=== PATIENT | male | born 2000 | race Caucasian/White ===

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

== ENCOUNTER 2021-09-25 11:44 | Emergency (ER) | payer BC, SELFPAY ==
--- NOTE | ~2021-09-25 | CT_ITS ---
EXAMINATION: CT abdomen pelvis wo con DATE: 09/25/2021 14:57 INDICATION: Abdominal pain, nausea and vomiting TECHNIQUE: Computed tomography (CT) of the abdomen and pelvis was performed without intravenous contr ast. The dose-length product (DLP) was 205.33 mGy-cm. Automated exposure control and iterative recons truction technique were employed. COMPARISON: 09/22/2019 FINDINGS: The lung bases are clear. The heart size is normal. There is a small sliding hiatal hernia. The liver is diffusely low in attenuation when compared with the spleen, consistent with hepatic socrates atosis. The spleen, pancreas, gallbladder, and adrenal glands are normal. The kidneys are unremarkabl e. No pathologically enlarged abdominal or pelvic lymph nodes are identified. There is no free intrap eritoneal gas or evidence of bowel obstruction. The appendix is normal. IMPRESSION: 1. Diffuse hepatic steatosis. Reviewed, dictated and finalized at location F.
[2021-09-25 11:52] VITALS: BP 130/105; PULSE 69; RESP 16; TEMP 36.9; O2SAT 100
[2021-09-25 12:12] LABS: Basophils Percent Auto 0.3 % (0.2-1.2); Hematocrit 54.6 % (42.0-52.0); Hemoglobin 19.1 g/dL (14.0-18.0); Immature Granulocyte Absolute 0.02 K/mm3 (0.00-0.031); Immature Granulocyte Percent A 0.3 % (0-0.5); Lymphocytes Absolute Auto 0.87 K/mm3 (0.9-3.2); Lymphocytes Percent Auto 11.6 % (18.3-44.2); Mean Corpuscular Hemoglobin 32.1 pg (26-34); Mean Corpuscular Volume 91.8 fl (80-100); Mean Platelet Volume 9.4 fl (7.4-10.4); Monocytes Absolute Auto 0.9 K/mm3 (0.1-0.6); Monocytes Percent Auto 11.5 % (2.6-8.5); Neutrophils Absolute Auto 5.7 K/mm3 (1.3-6.7); Neutrophils Percent Auto 76.3 % (45.5-73.1); Platelet Count Result 290 k/mm3 (150-375); Red Blood Count 5.95 M/mm3 (4.6-6.20); Red Cell Distribution Width 12.6 % (11.5-14.5); White Blood Count 7.5 K/mm3 (4.5-10.0)
[2021-09-25 12:22] LABS: Add Urine Microscopic? YES; Appearance Urine Clear (Clear); Bilirubin Urine 3+ (Negative); Blood Urine Negative (Negative); Color Urine Yellow (Yellow); Glucose Urine UA Negative (Negative); Ketones Urine 4+ mg/dL (Negative); Leukocyte Esterase Ur Negative LEU/UL (Negative); Nitrate Urine Negative (Negative); Protein Urine 3+ mg/dL (Negative); Specific Grav Ur >= 1.030 (1.001-1.035); Urobilinogen Urine 0.2 mg/dL (<2.0)
[2021-09-25 12:25] LABS: Alanine Aminotransferase 395 U/L (6-50); Albumin Level 5.8 g/dL (3.5-5.1); Alkaline Phosphatase 77 U/L (38-126); Anion Gap 22 mmol/L (8-16); Aspartate Amino Transferase 241 U/L (17-59); Bilirubin,Total 0.8 mg/dL (0.2-1.3); Blood Urea Nitrogen 14 mg/dL (9-20); Calcium 10.9 mg/dL (8.4-10.2); Carbon Dioxide 22 mmol/L (22-30); Chloride 92 mmol/L (98-107); Estimated CRCL calculation 95 ml/min; Estimated Glomerular Filt Rate > 60; Glucose 146 mg/dL (65-110); Lipase 78 U/L (23-300); Potassium 4.4 mmol/L (3.4-5.0); Sodium 136 mmol/L (137-145)
[2021-09-25 12:26] LABS: Mucus Urine Moderate /lpf; RBC Urine 0-2 /hpf (0-2); Squamous Epithelial Cell Urine Rare /hpf (Few); WBC Urine 0-3 /hpf
--- NOTE | 2021-09-25 12:51 | ED.NAVMDI ---
HPI - Nausea/Vomiting/Diarrhea General Chief complaint: Nausea/Vomiting/Diarrhea Stated complaint: vomiting Time Seen by Provider: 09/25/21 12:06 Source: patient Mode of arrival: ambulatory Limitations: no limitations History of Present Illness HPI Narrative: Patient is a 20-year-old male who presents to the ED with report of N/V/D. Patient reports having symptoms for the past 2 days. He states he has been unable to keep anything down and at times has been forcefully vomiting. He does have a history of acid reflux and has been taking Tums at home without relief. He also reports having mid abdominal pain, described as a cramping. No blood in the stool. No urinary symptoms. No upper respiratory symptoms, cough, congestion, rhinorrhea. No fever/chills. No family members with similar symptoms. No known bad food exposure. Related Data Home Medications Medication Instructions Recorded Confirmed pantoprazole 40 mg tablet,delayed 40 mg PO QAM 09/25/21 release sertraline 50 mg tablet 50 mg PO DAILY 09/25/21 Allergies Allergy/AdvReac Type Severity Reaction Status Date / Time Unable to Assess Allergy Verified 09/22/19 06:23 Review of Systems Review of Systems: CONSTITUTIONAL: Denies fever, chills. ENT: Denies rhinorrhea, congestion, sore throat. CARDIOVASCULAR: Denies chest pain. RESPIRATORY: Denies cough or dyspnea. GASTROINTESTINAL: Reports mid abdominal pain, nausea, vomiting, and diarrhea. Denies hematemesis, rectal bleeding. GENITOURINARY: Denies dysuria or hematuria. MUSCULOSKELETAL: Denies back pain. NEUROLOGIC: Denies headache. All systems reviewed & are unremarkable except as noted in HPI and below PMFSH Past Medical History Medical History (Updated 09/25/21 @ 16:25 by Angela Olsen PA-C) Acid reflux Surgical History Surgical History (Updated 09/25/21 @ 13:01 by Angela Olsen PA-C) History of circumcision History of esophagogastroduodenoscopy (EGD) Social History Social History (Updated 09/25/21 @ 13:01 by Angela Olsen PA-C) Smoking status: Never smoker Exam Narrative: GENERAL: Well appearing, well-nourished, non-toxic, in no acute distress. HEAD: Normocephalic, atraumatic. NECK: Supple. No adenopathy, no masses. RESPIRATORY: Airway patent, respirations nonlabored. Clear to auscultation bilaterally, no rales, rhonchi, wheezing. CARDIOVASCULAR: Regular rate and rhythm without murmurs, rubs, or gallops. Peripheral pulses 2+ and equal bilaterally. ABDOMINAL: Soft, diffuse tenderness to palpation, worst in umbilical region, RLQ, RUQ. Nondistended, no hepatosplenomegaly. Normoactive BS. MUSCULOSKELETAL: Moves all extremities. Strength/ROM intact without gross deformities. SKIN: Warm, dry, normal color. No rashes. NEURO: A&O X3. Speech clear. Cranial nerves II-XII grossly intact. Steady gait. No ataxic movements. PSYCHIATRIC: Appropriate mood and affect. Normal interaction. Course Vital Signs Vital signs: Vital Signs Temperature 98.4 F 09/25/21 11:52 Pulse Rate 69 09/25/21 11:52 Respiratory Rate 16 09/25/21 11:52 Blood Pressure 130/105 H 09/25/21 11:52 Pulse Oximetry 100 09/25/21 11:52 Oxygen Delivery Room Air 09/25/21 11:52 Temperature 98.4 F 09/25/21 11:52 Pulse Rate 69 09/25/21 11:52 Respiratory Rate 16 09/25/21 11:52 Blood Pressure 130/105 H 09/25/21 11:52 Pulse Oximetry 100 09/25/21 11:52 Oxygen Delivery Room Air 09/25/21 11:52 MDM - Nausea/Vomiting/Diarrhea MDM Narrative Medical decision making narrative: Patient presented to ED with 2-day history of N/V/D with mid abdominal pain. Vital signs stable upon arrival. Patient with diffuse right-sided abdominal pain on exam. Laboratory evaluation showed hemoconcentration. No leukocytosis. Initial CMP showed hypochloremia, positive anion gap, hypercalcemia. No history of diabetes. BG 146. Gap likely related to dehydration as urine also showed protein and ketones. CMP also show
[2021-09-25] MEDS: SODIUM CHLORIDE 0.9% IV 1,000 ML 999 ML IV CONT ×2 (13:01→15:09)
[2021-09-25] MEDS: ONDANSETRON INJ 4 MG/2 ML VIAL IV PUSH (13:01)
[2021-09-25] MEDS: METOCLOPRAMIDE HCL INJ 10 MG/2 ML VIAL IV PUSH (15:09)
[2021-09-25] MEDS: LIDOCAINE HCL 2% VISC SOLN 15 ML UDC 20 ML PO (15:10)
[2021-09-25] MEDS: MAG HYDROX/AL HYDROX/SIMETH 30 ML UDC PO (15:10)
[2021-09-25 16:11] LABS: Alanine Aminotransferase 278 U/L (6-50); Alkaline Phosphatase 57 U/L (38-126); Anion Gap 13 mmol/L (8-16); Aspartate Amino Transferase 186 U/L (17-59); Bilirubin,Total 0.7 mg/dL (0.2-1.3); Blood Urea Nitrogen 13 mg/dL (9-20); Carbon Dioxide 22 mmol/L (22-30); Chloride 101 mmol/L (98-107); Estimated CRCL calculation 106 ml/min; Estimated Glomerular Filt Rate > 60; Glucose 114 mg/dL (65-110); Sodium 136 mmol/L (137-145)
== END 2021-09-25 16:45 | disposition home or self-care (01) ==
PROVIDERS: Physician Assistant; Emergency Provider Emergency Medicine; PCP Registered Nurse
DX: K76.0 Fatty (change of) liver, not elsewhere classified (principal); R11.2 Nausea with vomiting, unspecified; K21.9 Gastro-esophageal reflux disease without esophagitis
CPT/HCPCS: 36415; 74176; 80053; 81001; 83690; 85025; 96365; 96375; 99284; A9270; J0131; J2405; J2765; J7030

== ENCOUNTER 2024-10-05 02:43 | Emergency (ER) | payer OTHER, SELFPAY ==
[2024-10-05] VITALS (11 sets, daily range): BP systolic 118–161; BP diastolic 55–98; PULSE 101–110; RESP 16–20; TEMP 36.4–37.4; O2SAT 94–100
--- NOTE | ~2024-10-05 | CT_ITS ---
Non-contrast CT scan of the Abdomen and Pelvis Clinical indication: Pelvic pain Technique: 2.5 mm axial scans were obtained through the abdomen and pelvis without intravenous or or al contrast. Dose reduction technique was used on this scan by utilizing automated exposure control a nd iterative reconstruction technique. The dose-length product (DLP) was 909.94 mGy-cm. COMPARISON: 09/25/2021 Findings: Images through the lung bases reveal no abnormalities. There is no evidence of renal or ureteral calculi. The kidneys and the ureters are nondilated. Liver measures 26.7 cm in length. There is diffuse hepatic steatosis. Somewhat mildly nodular contour of the liver present. There are pronounced low attenuation regions adjacent to gallbladder fossa whi ch could reflect mass lesions versus areas of more pronounced fatty infiltration. Gallbladder is yefri edly distended, without definite wall thickening or adjacent inflammatory change. The spleen, pancrea s, and adrenals appear normal. There is no aortic aneurysm. There is no evidence of bowel obstruction. Mild large bowel wall thickening is probably related to th e presence of ascites. Images through the pelvis were performed. Small amount of abdominopelvic ascites present. Urinary lety dder unremarkable. No pelvic mass evident. Impression: Hepatomegaly with diffuse fatty infiltration and probable mild cirrhotic change. There are more prono unced, masslike low attenuation regions adjacent to gallbladder fossa, measuring up to 6.6 cm in diam eter, which could reflect areas of more pronounced fatty infiltration versus possibly mass lesions. F ollow-up pre and postcontrast MR recommended to further assess. Small amount of abdominopelvic ascites with diffuse mesenteric edema. Markedly distended gallbladder without evidence of wall thickening or acute inflammatory change. Mild large bowel wall thickening diffusely is probably related to the presence of ascites. Correlate clinically for colitis. Reviewed, dictated and finalized at [facility]. Impression: Hepatomegaly with diffuse fatty infiltration and probable mild cirrhotic change . There are more pronounced, masslike low attenuation regions adjacent to gallb ladder fossa, measuring up to 6.6 cm in diameter, which could reflect areas of more pronounced fatty infiltration versus possibly mass lesions. Follow-up pre and postcontrast MR recommended to further assess. Small amount of abdominopelvic ascites with diffuse mesenteric edema. Markedly distended gallbladder without evidence of wall thickening or acute inf lammatory change. Mild large bowel wall thickening diffusely is probably related to the presence of ascites. Correlate clinically for colitis.
--- OUTSIDE RECORDS SUMMARY | 2024-10-05 02:47 | XMS_ITS | Data Portability ---
Author Organization [place] - [facility] [employer], Main Office Address [address] [place] [id number] Care Team Providers Care Chief Cardiopulmonary Technologist Name Role Phone NEERAJ WEEKS Primary Care Provider [phone] Assessment Encounter Date Assessment Date Assessment LastModified by Organization Details LastModified Time 07/10/2022 07/10/2022 D/w pt about his findings, recent imagine and further plan of care. Will refer pt to PT and Right Of Way Manager. Meds as directed. Ice pack as directed prn. RICE explained in detail. Advised to avoid any strenuous activities/lifti ng-pushing until cleared. Educated pt about alarming symptoms to monitor at home and call us back or get checked in ED. F/u in few weeks as directed. [email or web address] Not available 07/10/2022 12:42:04 08/07/2022 08/07/2022 This note is dictated and transcribed by [employer]. Shingle Grader variances may occur. Despite proofreading, typographical errors may occur. [email or web address] Not available 08/12/2022 13:29:37 08/07/2022 08/07/2022 21 yo M with - WELL ADULT VISIT - RT ANKLE PAIN, chronic - EX-SMOKER X-ray Rt ankle: 07/03/22. D/w pt in detail about his findings, recent imagines and further plan of care. Will do routine labs. Meds as directed. Diet and exercise explained in detail. Safe sex education given. Encouraged pt cont not to smoke. F/u with Right Of Way Manager as per schedule. HM: Flu - Pt declined. Tdap, Gardasil - At pharmacy/HD. F/u in 2 weeks. Annual labs in 08/18. [email or web address] Not available 08/07/2022 10:48:28 09/01/2022 09/01/2022 21 yo M with - ELEVATED LFTs - GOUT, mild - HTG, new - VIT D DEFICIENCY - RT ANKLE PAIN, chronic - EX-SMOKER X-ray Rt ankle: 07/03/22. D/w pt in detail about his findings, recent imagines and further plan of care. Meds as directed. Diet and exercise explained in detail. Safe sex education given. Encouraged pt cont not to smoke. Advised pt to avoid any alcohol and acetaminophen in future. Cont f/u with Right Of Way Manager as per schedule. HM: Flu - Pt declined. Tdap, Gardasil - At pharmacy/HD. F/u in 1-1.5 months. LFT before next visit. Uric acid, lipids in 12/17. Annual labs in 08/18. [email or web address] Not available 09/01/2022 15:41:10 09/29/2022 09/29/2022 21 yo M with - ELEVATED LFTs - GOUT, mild - HTG, new - ALLERGIC RHINITIS, seasonal - ALCOHOL DEPENDENCE - VIT D DEFICIENCY - RT ANKLE PAIN, chronic - EX-SMOKER X-ray Rt ankle: 07/03/22. D/w pt in detail about his findings, recent imagines and further plan of care. Will refer pt to Automobile Contract Clerk. Meds as directed. Diet and exercise explained in detail. Safe sex education given. Encouraged pt cont not to smoke. Advised pt to avoid any alcohol and acetaminophen in future. F/u with AA group as directed. F/u with Automobile Contract Clerk as per schedule. Cont f/u with Right Of Way Manager as per schedule. HM: Flu - Pt declined. Tdap, Gardasil - At pharmacy/HD. F/u in 2 months. LFT before next visit. Uric acid, lipids in 12/17. Annual labs in 08/18. [email or web address] Not available 09/29/2022 15:56:12 Plan of Treatment Reminders Order Date Submit Date Provider Last Modified By Organization Details Last Modified Time Details Appointments None recorded. Lab CMP, serum or plasma 2022 023 [email or web address] [facility] (Lab), [address] [place], [address], 09:58:28 uric acid, serum or plasma 2022 023 [email or web address] [place] [address] (Lab), [address] [place], [address], 3 08:31:15 lipid panel, serum [email or web address] (Lab), [address] [place], [address], 3 08:31:15 hepatic function panel, serum 2022 023 [email or web address] [facility] (Lab), [address] [place], [address], 3 16:24:10 uric acid, serum or plasma 2022 023 [facility] (Lab), [address] [place], [address], 3 20:42:55 vitamin D, 25-hydroxy, total, serum [address] (Lab), [address] [place], [address], 3 09:24:32 CMP, serum or plasma 2022 023 [facility] (Lab), [address] [place], [address], 3 20:42:48 CBC w/ auto diff 2022 023 [facility] (Lab), [address] [place], [address], 3 19:22:47 lipid panel, blood [address] (Lab), [address] [place], [address], 3 10:56:18 TSH, serum, reflex free T4 [address] (Lab), [address] [place], [address], 3 09:17:01 urinalysis complete, reflex culture [address] (Lab), [address] [place], [address], 3 09:24:21 Referral chief environmental commitment officer referral 2022 023 elis [facility], [address] [place] [address], [address], [place], [address], 3 19:18:46 physical therapist referral - Chronic Rt ankle pain, x-ray neg. *Please call patient to schedule* 2022 023 [facility], [address] [facility] [address], [place], [address], 3 12:58:41 tax advisor referral - Chronic Rt ankle pain, x-ray neg. Please call pt to schedule appt. Thank you 2022 023 [email or web address] Fam Amezquita DPM, [address] [facility], [facility] [address], [place], [address], 3 18:52:25 Procedures None recorded. Surgeries None recorded. Imaging US, ankle 2022 023 [facility] ([facility] Sched[facility]), [address] [place], [address], 3 09:42:23 Medication Orders allopurinol 100 mg tablet 2022 023 [facility] [address], [address] [facility], [place], [address], 3 15:49:05 ergocalcife rol (vitamin D2) 1,250 mcg (50,000 unit) capsule 2022 023 [facility] [address], [address] , [place], [address], 3 15:49:05 fluticasone propionate 50 mcg/actuati on nasal spray,suspe nsion 2022 023 [facility] [address], [address], [place], [address], 3 15:49:03 prednisone 10 mg tablet 2022 023 [facility] [address], [address] [facility], [place], [address], 3 15:49:03 allopurinol 100 mg tablet 2022 023 [facility] [address] [facility], [address], [place], [address], 3 15:33:54 ergocalcife rol (vitamin D2) 1,250 mcg (50,000 unit) capsule 2022 023 [facility] [address] [facility], [address] , [place], [address], 3 15:33:54 Drysol Dab-O-Matic 20 % topical solution 2022 023 [facility] [address] [facility], [address] , [place], [address], 3 15:39:18 Patient TargetsNo targets recorded. Patient Instructions Encounter Date Encounter Id Patient Instructions Last Modified By Organization Details Last Modified Time 09/01/2022 [id number] learning about high cholesterol Not available 09/01/2022 15:33:50 high cholesterol : care instructions [email or web address] Not available 09/01/2022 15:33:51 Reason for Referral Physical Therapist Referral for Pain of right ankle joint Chronic Rt ankle pain, x-ray neg. *Please call patient to schedule* Referring Physician: Neeraj Weeks [facility], Encounter Date: 07/10/[address] Referral for Pain of right ankle joint Chronic Rt ankle pain, x-ray neg. Please call pt to schedule appt. Thank you Referring Physician: Neeraj Weeks [facility], Encounter Date: 07/10/2022 Automobile Contract Clerk Referral for Seaso nal allergic rhinitis Referring Physician: Neeraj Weeks [facility], Encounter Date: 09/29/2022 Results Created Date Observation Date Name Description Value Unit Range Abnormal Flag Note LastModifiedBy Organization Detail LastModifiedTime 08/08/1908/07/2022 CBC/C OMPLE TE BLD COUNT W/DIF F white blood cells 5.0 x10'3 /uL 4.2-10 .8 Not Available [facility] (Lab) [address] [place], [address], 08/07/2022 19:22:47 08/08/1908/07/2022 CBC/C OMPLE TE BLD COUNT W/DIF F red blood cells 4.92 x10'6 /uL 4.10-5 .80 Not Available [facility] (Lab) [address] [place], [address], 08/07/2022 19:22:47 08/08/19 23 08/07/2022 CBC/C OMPLE TE BLD COUNT W/DIF F hemoglobin 15.9 g/dL 13.2-1 7.0 Not Available [facility] (Lab) [address] [place], [address], 08/07/2022 19:22:47 08/08/19 23 08/07/2022 CBC/C OMPLE TE BLD COUNT W/DIF F hematocrit 46.3 % 39.3-5 0.0 Not Available [facility] (Lab) [address] [place], [address], 08/07/2022 19:22:47 08/08/19 23 08/07/2022 CBC/C OMPLE TE BLD COUNT W/DIF F mean red cell volume 94.1 fL 80.0-9 7.0 Not Available [facility] (Lab) [address] [place], [address], 08/07/2022 19:22:47 08/08/19 23 08/07/2022 CBC/C OMPLE TE BLD COUNT W/DIF F mean red cell hemoglobin 32.3 pg 27.0-3 3.0 Not Available [facility] (Lab) [address] [place], [address], 08/07/2022 19:22:47 08/08/19 23 08/07/2022 CBC/C OMPLE TE BLD COUNT W/DIF F mean RBC HGB concentratio n 34.3 g/dL 31.0-3 6.0 Not Available [facility] (Lab) [address] [place], [address], 08/07/2022 19:22:47 08/08/19 23 08/07/2022 CBC/C OMPLE TE BLD COUNT W/DIF F red cell distribution width 12.4 % 11.8-1 5.5 Not Available [facility] (Lab) [address] [place], [address], 08/07/2022 19:22:47 08/08/19 23 08/07/2022 CBC/C OMPLE TE BLD COUNT W/DIF F platelets 270 x10'3 /uL 150-40 0 Not Available [facility] (Lab) [address] [place], [address], 08/07/2022 19:22:47 08/08/19 23 08/07/2022 CBC/C OMPLE TE BLD COUNT W/DIF F mean platelet volume 10.3 fL 9.0-12 .4 Not Available [facility] (Lab) [address] [place], [address], 08/07/2022 19:22:47 08/08/19 23 08/07/2022 CBC/C OMPLE TE BLD COUNT W/DIF F neutrophils 40.4 % 39.0-7 2.0 Not Available [facility] (Lab) [address] [place], [address], 08/07/2022 19:22:47 08/08/19 23 08/07/2022 CBC/C OMPLE TE BLD COUNT W/DIF F lymphocytes 43.7 % 16.0-4 7.0 Not Available [facility] (Lab) [address] [place], [address], 08/07/2022 19:22:47 08/08/19 23 08/07/2022 CBC/C OMPLE TE BLD COUNT W/DIF F monocytes 11.7 % 5.0-12 .0 Not Available [facility] (Lab) [address] [place], [address], 08/07/2022 19:22:47 08/08/19 23 08/07/2022 CBC/C OMPLE TE BLD COUNT W/DIF F eosinophils 3.2 % 1.0-7. 0 Not Available [facility] (Lab) [address] [place], [address], 08/07/2022 19:22:47 08/08/19 23 08/07/2022 CBC/C OMPLE TE BLD COUNT W/DIF F basophils 0.8 % 0.0-2. 0 Not Available [facility] (Lab) [address] [place], [address], 08/07/2022 19:22:47 08/08/19 23 08/07/2022 CBC/C OMPLE TE BLD COUNT W/DIF F immature granulocytes 0.2 % 0.00-0 .50 Not Available [facility] (Lab) [address] [place], [address], 08/07/2022 19:22:47 08/08/19 23 08/07/2022 CBC/C OMPLE TE BLD COUNT W/DIF F neutrophils, absolute count 2.04 x10'3 /uL 1.5-8. 0 Not Available [facility] (Lab) [address] [place], [address], 08/07/2022 19:22:47 08/08/19 23 08/07/2022 CBC/C OMPLE TE BLD COUNT W/DIF F lymphocytes, absolute count 2.20 x10'3 /uL 1.07-3 .43 Not Available [facility] (Lab) [address] [place], [address], 08/07/2022 19:22:47 08/08/19 23 08/07/2022 CBC/C OMPLE TE BLD COUNT W/DIF F monocytes, absolute count 0.59 x10'3 /uL 0.29-0 .99 Not Available [facility] (Lab) [address] [place], [address], 08/07/2022 19:22:47 08/08/19 23 08/07/2022 CBC/C OMPLE TE BLD COUNT W/DIF F eosinophils, absolute count 0.16 x10'3 /uL 0.02-0 .53 Not Available [facility] (Lab) [address] [place], [address], 08/07/2022 19:22:47 08/08/19 23 08/07/2022 CBC/C OMPLE TE BLD COUNT W/DIF F basophils, absolute count 0.04 x10'3 /uL 0.01-0 .08 Not Available [facility] (Lab) [address] [place], [address], 08/07/2022 19:22:47 08/08/19 23 08/07/2022 CBC/C OMPLE TE BLD COUNT W/DIF F immature granulocytes ,absolute 0.01 x10'3 /uL 0.00-0 .05 Not Available [facility] (Lab) [address] [place], [address], 08/07/2022 19:22:47 08/08/19 23 08/07/2022 CBC/C OMPLE TE BLD COUNT W/DIF F nucleated red blood cells 0.0 % -0 Not Available [facility] (Lab) [address] [place], [address], 08/07/2022 19:22:47 08/08/19 23 08/07/2022 CBC/C OMPLE TE BLD COUNT W/DIF F NRBC# 0.00 x10'3 /uL Not Available [facility] (Lab) [address] [place], [address], 08/07/2022 19:22:47 08/08/19 23 08/07/2022 URINA LYSIS COMPL ETE/I RIS W/RFX color YELLOW Not Available [facility] (Lab) [address] [place], [address], 08/07/2022 19:38:16 08/08/19 23 08/07/2022 URINA LYSIS COMPL ETE/I RIS W/RFX appear CLEAR Not Available [facility] (Lab) [address] [place], [address], 08/07/2022 19:38:16 08/08/19 23 08/07/2022 URINA LYSIS COMPL ETE/I RIS W/RFX specific gravity 1.023 1.001- 1.030 Not Available [facility] (Lab) [address] [place], [address], 08/07/2022 19:38:16 08/08/19 23 08/07/2022 URINA LYSIS COMPL ETE/I RIS W/RFX pH 6.0 pH_un its 5.0-9. 0 Not Available [facility] (Lab) [address] [place], [address], 08/07/2022 19:38:16 08/08/19 23 08/07/2022 URINA LYSIS COMPL ETE/I RIS W/RFX leukocytes NEGATI VE lance/u L negati ve- Not Available [facility] (Lab) [address] [place], [address], 08/07/2022 19:38:16 08/08/19 23 08/07/2022 URINA LYSIS COMPL ETE/I RIS W/RFX nitrite NEGATI VE negati ve- Not Available [facility] (Lab) [address] [place], [address], 08/07/2022 19:38:16 08/08/19 23 08/07/2022 URINA LYSIS COMPL ETE/I RIS W/RFX protein NEGATI VE mg/dL negati ve- Not Available [facility] (Lab) [address] [place], [address], 08/07/2022 19:38:16 08/08/19 23 08/07/2022 URINA LYSIS COMPL ETE/I RIS W/RFX glucose NORMAL mg/dL normal - Not Available [facility] (Lab) [address] [place], [address], 08/07/2022 19:38:16 08/08/19 23 08/07/2022 URINA LYSIS COMPL ETE/I RIS W/RFX ketones 10 mg/dL negati ve- abnormal Not Available [facility] (Lab) [address] [place], [address], 08/07/2022 19:38:16 08/08/19 23 08/07/2022 URINA LYSIS COMPL ETE/I RIS W/RFX urobilinogen NORMAL mg/dL normal - Not Available [facility] (Lab) [address] [place], [address], 08/07/2022 19:38:16 08/08/1908/07/2022 URINA LYSIS COMPL ETE/I RIS W/RFX bilirubin NEGATI VE mg/dL negati ve- Not Available [facility] (Lab) [address] [place], [address], 08/07/2022 19:38:16 08/08/19 23 08/07/2022 URINA LYSIS COMPL ETE/I RIS W/RFX blood NEGATI VE mg/dL negati ve- Not Available [facility] (Lab) [address] [place], [address], 08/07/2022 19:38:16 08/08/19 23 08/07/2022 URINA LYSIS COMPL ETE/I RIS W/RFX white blood cells 0-8 /i??h pfi?? 0-8 Not Available [facility] (Lab) [address] [place], [address], 08/07/2022 19:38:16 08/08/19 23 08/07/2022 URINA LYSIS COMPL ETE/I RIS W/RFX red blood cells 0-4 /i??h pfi?? 0-4 Not Available [facility] (Lab) [address] [place], [address], 08/07/2022 19:38:16 08/08/19 23 08/07/2022 URINA LYSIS COMPL ETE/I RIS W/RFX bacteria NONE Not Available [facility] (Lab) [address] [place], [address], 08/07/2022 19:38:16 08/08/19 23 08/07/2022 URINA LYSIS COMPL ETE/I RIS W/RFX mucous OCCASI ONAL /i??l pfi?? abnormal Not Available [facility] (Lab) [address] [place], [address], 08/07/2022 19:38:16 08/08/19 23 08/07/2022 URINA LYSIS COMPL ETE/I RIS W/RFX squamous epithelial OCCASI ONAL /i??l pfi?? abnormal Not Available [facility] (Lab) [address] [place], [address], 08/07/2022 19:38:16 08/08/19 23 08/07/2022 COMPR EHENS FERMIN METAB OLIC PANEL sodium 140 mmol/ L 137-14 5 Not Available [facility] (Lab) [address] [place], [address], 08/07/2022 20:42:48 08/08/19 23 08/07/2022 COMPR EHENS FERMIN METAB OLIC PANEL potassium 4.2 mmol/ L 3.5-5. 1 Not Available [facility] (Lab) [address] [place], [address], 08/07/2022 20:42:48 08/08/19 23 08/07/2022 COMPR EHENS FERMIN METAB OLIC PANEL chloride 101 mmol/ L 98-107 Not Available [facility] (Lab) [address] [place], [address], 08/07/2022 20:42:48 08/08/19 23 08/07/2022 COMPR EHENS FERMIN METAB OLIC PANEL carbon dioxide 26 mmol/ L 22-30 Not Available [facility] (Lab) [address] [place], [address], 08/07/2022 20:42:48 08/08/19 23 08/07/2022 COMPR EHENS FERMIN METAB OLIC PANEL anion gap 17.2 mmol/ L 14-22 Not Available [facility] (Lab) [address] [place], [address], 08/07/2022 20:42:48 08/08/19 23 08/07/2022 COMPR EHENS FERMIN METAB OLIC PANEL glucose 99 mg/dL 70-99 Not Available [facility] (Lab) [address] [place], [address], 08/07/2022 20:42:48 08/08/19 23 08/07/2022 COMPR EHENS FERMIN METAB OLIC PANEL BUN 18 mg/dL 8-19 Not Available [facility] (Lab) [address] [place], [address], 08/07/2022 20:42:48 08/08/19 23 08/07/2022 COMPR EHENS FERMIN METAB OLIC PANEL creatinine 0.82 mg/dL 0.66-1 .25 Not Available [facility] (Lab) [address] [place], [address], 08/07/2022 20:42:48 08/08/19 23 08/07/2022 COMPR EHENS FERMIN METAB OLIC PANEL GFR >60 Refer ence Range : [place] ge GFR Healt hy Adult : >60 mL/mi n/1.7 3 m2 Chron ic Kidne y Disea se: 15-60 mL/mi n/1.7 3 m2 Kidne y Failu re: <15/m L/min /1.73 m2 www.n iddk. nih.g ov The MDRD study equat ion has not been valid ated in child elno <18 years of age; pregn ant women ; the elder ly >85 years of age; or in some racia l or ethni c subgr oups, such as Hispa nics. Outsi de the valid ated saray eters , estim ated GFR is less accur ate, requi ring clini indira judgm ent on a case- by-ca se basis . Clini indira inter preta tion for other races and ages must be made by the clini clarence. The MDRD study equat ion has not been valid ated for the evalu ation of serum creat inine relat ed to nutri trudi l statu s or medic ation usage . For perso ns <18 years of age, a pedia tric GFR calcu lator is avail able on the [facility] websi te: https :[email or web address] orr.caterina giles/alessandro holm s/kdo qi/gf r_cal culat or Not Available [facility] (Lab) [address] [place], [address], 08/07/2022 20:42:48 08/08/19 23 08/07/2022 COMPR EHENS FERMIN METAB OLIC PANEL alkaline phosphatase 74 U/L 38-126 Not Available [facility] (Lab) [address] [place], [address], 08/07/2022 20:42:48 08/08/19 23 08/07/2022 COMPR EHENS FERMIN METAB OLIC PANEL alanine aminotransfe rase 319 U/L 0-50 high Not Available [facility] (Lab) [address] [place], [address], 08/07/2022 20:42:48 08/08/19 23 08/07/2022 COMPR EHENS FERMIN METAB OLIC PANEL aspartate aminotransfe rase 411 U/L 15-46 high Not Available [facility] (Lab) [address] [place], [address], 08/07/2022 20:42:48 08/08/19 23 08/07/2022 COMPR EHENS FERMIN METAB OLIC PANEL bilirubin, total 0.70 mg/dL 0.20-1 .30 Not Available [facility] (Lab) [address] [place], [address], 08/07/2022 20:42:48 08/08/19 23 08/07/2022 COMPR EHENS FERMIN METAB OLIC PANEL calcium 10.0 mg/dL 8.4-10 .2 Not Available [facility] (Lab) [address] [place], [address], 08/07/2022 20:42:48 08/08/19 23 08/07/2022 COMPR EHENS FERMIN METAB OLIC PANEL total protein 8.2 g/dL 6.3-8. 2 Not Available [facility] (Lab) [address] [place], [address], 08/07/2022 20:42:48 08/08/19 23 08/07/2022 COMPR EHENS FERMIN METAB OLIC PANEL albumin 5.1 g/dL 3.4-5. 0 high Not Available [facility] (Lab) [address] [place], [address], 08/07/2022 20:42:48 08/08/19 23 08/07/2022 COMPR EHENS FERMIN METAB OLIC PANEL globulin 3.1 g/dL 2.6-4. 2 Not Available [facility] (Lab) [address] [place], [address], 08/07/2022 20:42:48 08/08/19 23 08/07/2022 COMPR EHENS FERMIN METAB OLIC PANEL A/G ratio 1.6 ratio 1.0-2. 0 Not Available [facility] (Lab) [address] [place], [address], 08/07/2022 20:42:48 08/08/19 23 08/07/2022 LIPID PANEL cholesterol 189 mg/dL 140-19 9 NIH DEBBIE NSUS RECOM MENDA TION FOR SIERRA STERO L: ADULT CHILD LOW RISK: <200 <170 BORDE RLINE : <200- 239 ----- HIGH RISK: >240 >200 Not Available [facility] (Lab) [address] [place], [address], 08/07/2022 20:42:54 08/08/19 23 08/07/2022 LIPID PANEL triglyceride s 273 mg/dL 0-150 high NIH DEBBIE NSUS REPOR T RECOM MENDA TION FOR TRIGL YCERI DUKE: ADULT CHILD LOW RISK: <150 ----- BODER LINE: 150-1 99 ----- HIGH RISK: >200 ----- Not Available [facility] (Lab) [address] [place], [address], 08/07/2022 20:42:54 08/08/19 23 08/07/2022 LIPID PANEL HDL cholesterol 92 mg/dL 40- Not Available [facility] (Lab) [address] [place], [address], 08/07/2022 20:42:54 08/08/19 23 08/07/2022 LIPID PANEL LDL cholesterol, calculated 42 mg/dL 0-130 NIH DEBBIE NSUS REPOR T RECOM MENDA TIONS FOR LDL: ADULT CHILD LOW RISK <130 <110 (OPTI MAL LDL) <100 ----- VICKIEDE RLINE : 130-1 59 ----- HIGH RISK: >160 >130 A TRIGL YCERI DE RESUL T >400 INVAL IDATE S THE CALCU LATIO N FOR LDL FRACT IONAT ION - THE LDL RESUL T WILL NOT BE REPOR HUSSEIN. Not Available [facility] (Lab) [address] [place], [address], 08/07/2022 20:42:54 08/08/1908/07/2022 URIC ACID SERUM uric acid 8.0 mg/dL 3.5-8. 5 Not Available [facility] (Lab) [address] [place], [address], 08/07/2022 20:42:55 08/08/1908/07/2022 VITAM IN D 25-HY DROXY vd25oh 18.4 NG/mL 30-100 low Vitam in D Statu s: Defic ient: <20 ng/mL Insuf ficie nt: 20-29 ng/mL Suffi cient : 30-10 0 ng/mL Not Available [facility] (Lab) [address] [place], [address], 08/07/2022 20:58:32 08/08/1908/07/2022 TSH W/REF RONALDO FT4 TSH with reflex free T4 2.300 uIU/m L 0.465- 4.680 Not Available [facility] (Lab) [address] [place], [address], 08/07/2022 21:08:42 07/04/19 XR, ankle , [address] [facility] [address] [place] [address] Rj t Name: MABEL QUINTANILLA ion #: [id number] Sex: M : 2000 6 3 Locati on: RA2 Attend ing Physic tiago: DORCAS WEEKS Orderi ng Physic tiago: DORCAS WEEKS Exam Date: 07/04/19 1:57 PM Exam Name: XR ANKLE RT 3V+ Admitt ing Diagno sis(es ): RADIOL OGY REPORT - FINAL EXAM: XR ANKLE RT 3V+ HISTOR Y: pain COMPAR FAY: None. TECHNI QUE: Three views of the right ankle were perfor med. FINDIN GS: No fractu re, sublux ation, or disloc ation about the right ankle. The mortis e is intact . IMPRES TANJA: Unrema rkable radiog raphs of the right ankle. Page [address] [facility] Rj t Name: MABEL QUINTANILLA ion #: [id number] Sex: M : 2000 6 3 Exam Date: 07/04/19 1:57 PM Exam Name: XR ANKLE RT 3V+ Admitt ing Diagno sis(es ): Create d and electr onical ly signed by: Charli langley MD Signed Date: 07/04/19 2:07 PM (CT) Dictat ed by: Charli langley MD (CT) (CT) Page 2 of 2 [id number] [facility] (Imaging) [address] [place], [address], 07/10/2022 12:34:34 09/09/19 23 09/08/2022 US, [facility] [address] [place] [address] Rj laws Name: MABEL QUINTANILLA Access ion #: [id number] Sex: M : 2000 6 0 Locati on: RAD Attend ing Physic tiago: FAM LOPEZ Orderi ng Physic tiago: FAM LOPEZ Exam Date: 023 7:58 AM Exam Name: US ANKLE RT COMPLE TE Admitt ing Diagno sis(es ): RADIOL OGY REPORT - FINAL EXAM: US ANKLE RT COMPLE TE HISTOR Y: right ankle pain latera l COMPAR FAY: None. 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 FINDIN GS: Tendon s: The extens or tendon s are intact . The perone us longus and brevis are intact demons tratin g increa sed signal sugges ting chroni c tendin osis. The Achill es tendon is grossl y intact . Ligame nts: The anteri or talofi bular ligame nt demons trates tendin osis but is Page 1 of 2 [facility] Rj t Name: MABEL QUINTANILLA Access ion #: [id number] Sex: M : 2000 6 0 Exam Date: 023 7:58 AM Exam Name: US ANKLE RT COMPLE TE Admitt ing Diagno sis(es ): grossl y intact . There is tendin osis and calcif icatio n of the CFL. Joints : No signif icant ankle or subtal ar effusi on Identi fied. IMPRES TANJA: See above. Create d and electr onical ly signed by: Charli langley MD Signed Date: 023 8:39 AM (CT) Dictat ed by: Cahrli langley MD DD: 023 8:39 AM (CT) DT: 023 8:39 AM (CT) Page 2 of [address] (Imaging) [address] [place], [address], 09/29/2022 15:42:13 09/09/19 23 09/08/2022 US, ankle No observ ation record ed. [address] ([employer]) [address] [place], [address], 09/29/2022 15:42:14 09/10/19 US, ankle No observ ation record ed. [address] ([employer]) [address] [place], [address], 09/29/2022 15:42:13 Result Notes None recorded. Problems Name Problem SNOMED Code Status Onset Date Resolution Date Notes Provider Name and Address Organization Details Recorded Time Pain of right ankle joint 8414796644661 9106 Active 2022 Neeraj Weeks MD [address] [facility] [address], [address], [email or web address] 3 12:14:12 Muscle pain 15524711 Active 2022 Neeraj Weeks MD [facility] [facility] [address], [address], [email or web address] 3 12:25:48 Ex-smoker 8298547 Active 2022 Neeraj Weeks MD [address] [facility] [address], [address], [email or web address] 3 10:43:16 Ankle pain 387950145 Active 2022 Fam Amezquita DPM [address] [facility] [address], [address], [email or web address] 3 15:37:35 Hyperhidros is 301398850 Active 2022 Fam Amezquita DPM [address], [place], [address], [email or web address] 3 15:38:36 Hypertrigly ceridemia 381950752 Active 2022 Neeraj Weeks MD [address], [address], [place], [address], [email or web address] 3 15:30:52 Vitamin D deficiency 25545952 Active 2022 Neeraj Weeks MD [address], [address], [place], [address], [email or web address] 3 15:31:31 Liver enzymes level above reference range 841828512 Active 2022 Neeraj Weeks MD [address], [place], [address], [email or web address] 3 15:32:26 Gout 37371373 Active 2022 Neeraj Weeks MD [address], [address], [place], [address], [email or web address] 3 15:33:13 Alcohol dependence 49712436 Active 2022 Neeraj Weeks MD [address], [address], [place], [address], [email or web address] 3 15:43:06 Seasonal allergic rhinitis 205781716 Active 2022 Neeraj Weeks MD [address], [place], [address], [email or web address] 3 15:47:17 Problem Notes None recorded. Medical Equipment None Reported. Medications Name Sig Start Date Stop Date Status Note LastModified by Organization Details LastModified Time prednisone 10 mg tablet TAKE 4 TABLETS BY MOUTH ONCE DAILY FOR 2 DAYS THEN 2 ONCE DAILY FOR 2 DAYS THEN 1 ONCE DAILY FOR 3 DAYS WITH FOOD active Not Available Not Available No t Available allopurinol 100 mg tablet TAKE 1 TABLET BY MOUTH ONCE DAILY DIRECTED FOR 30 DAYS active Not Available Not Available No t Available Drysol Dab-O-Matic 20 % topical solution APPLY TOPICALLY ONCE A WEEK DIRECTED active Not Available Not Available No t Available diclofenac sodium 75 mg tablet,delaye d release TAKE 1 TABLET BY MOUTH EVERY 12 HOURS NEEDED active Not Available Not Available No t Available ergocalcifero l (vitamin D2) 1,250 mcg (50,000 unit) capsule TAKE 1 CAPSULE BY MOUTH ONCE A WEEK DIRECTED active Not Available Not Available No t Available fluticasone propionate 50 mcg/actuation nasal spray,suspens ion USE 2 SPRAY(S) IN EACH NOSTRIL ONCE DAILY DIRECTED active Not Available Not Available No t Available Vitals Date Recorded Body height Body mass index (BMI) Body weight Body temperature Heart rate Oxygen saturation Oxygen saturation in Arterial blood by Pulse oximetry Respiratory rate Systolic blood pressure Diastolic blood pressure Provider Name and Address Organization Details Last Updated DateTime 3 176.53 cm 24.7 kg/m2 47560.7 g 97.8 [degF] 65 /min 98 % 98 % 16 /min 116 mm[Hg] 78 mm[Hg] Priscilla Miller RN [facility] [employer] [facility] 3 12:32:15 Date Recorded Heart rate Systolic blood pressure Diastolic blood pressure Provider Name and Address Organization Details Last Updated DateTime 08/07/2022 82 /min 128 mm[Hg] 80 mm[Hg] Neeraj Weeks MD [address] [facility], [address] [address], [place], [address], [facility] [employer] [facility] 08/07/2022 10:46:53 Date Recorded Body height Body mass index (BMI) Body weight Body temperature Oxygen saturation Oxygen saturation in Arterial blood by Pulse oximetry Respiratory rate Provider Name and Address Organization Details Last Updated DateTime 3 176.53 cm 24.2 kg/m2 99656.3 3 g 97.4 [degF] 98 % 98 % 16 /min Priscilla Miller RN [facility] [employer] [facility] 3 10:36:56 Date Recorded Body height Body mass index (BMI) Body weight Heart rate Respiratory rate Oxygen saturation Oxygen saturation in Arterial blood by Pulse oximetry Systolic blood pressure Diastolic blood pressure Provider Name and Address Organization Details Last Updated DateTime 3 176.53 cm 24.2 kg/m2 51777.3 3 g 81 /min 14 /min 98 % 98 % 137 mm[Hg] 92 mm[Hg] Barb Motta [facility] [employer] [facility] 3 15:30:42 Date Recorded Body height Body mass index (BMI) Body weight Body temperature Heart rate Oxygen saturation Oxygen saturation in Arterial blood by Pulse oximetry Systolic blood pressure Diastolic blood pressure Provider Name and Address Organization Details Last Updated DateTime 3 176.53 cm 25.2 kg/m2 47566.8 8 g 97.7 [degF] 92 /min 97 % 97 % 125 mm[Hg] 82 mm[Hg] Sophie Christianson MA [facility] [employer] [facility] 3 15:22:10 Date Recorded Systolic blood pressure Diastolic blood pressure Provider Name and Address Organization Details Last Updated DateTime 09/29/2022 128 mm[Hg] 80 mm[Hg] Neeraj Weeks MD [address] [place] [address], [address], [facility] [employer] [facility] 09/29/2022 15:53:02 Date Recorded Body height Body mass index (BMI) Body weight Body temperature Heart rate Oxygen saturation Oxygen saturation in Arterial blood by Pulse oximetry Provider Name and Address Organization Details Last Updated DateTime 3 176.53 cm 26 kg/m2 16755.1 9 g 97.5 [degF] 89 /min 96 % 96 % Sophie Christianson MA [facility] [employer] [facility] 3 15:39:22 Social History Question Answer Notes LastModified by Organizat ion Details LastModified Time Tobacco Smoking Status Former Smoker [facility] 08/07/2022 15:55:17 Do You Have An Advance Directive? No [email or web address] Information not available 07/03/2022 What Is Your Level Of Caffeine Consumption? Occasional [email or web address] Information not available 07/03/2022 In The 14 Days Before Symptom Onset, Have You Had Close Contact With A [facility] COVID-19 While That Case Was Ill? No [email or web address] Information not available 07/03/2022 In The 14 Days Before Symptom Onset, Have You Had Close Contact With A Person Who Is Under Investigation For COVID-19 While That Person Was Ill? No [email or web address] Information not available 07/03/2022 What Type Of Diet Are You Following? REGULAR Information not available 07/03/2022 What Is The Highest Grade Or Level Of School You Have Completed Or The Highest Degree You Have Received? [id number] [email or web address] Information not available 07/03/2022 How Many Days Of Moderate To Strenuous Exercise, Like A Brisk Walk, Did You Do In The Last 7 Days? 3 Workouts Information not available 07/03/2022 Have There Been Any Changes To Your Family Or Social Situation? No [email or web address] Information not available 07/03/2022 Do You Use Insect Repellent Routinely? Yes Information not available 07/03/2022 Where [facility] You Live[facility] [email or web address] Information not available 07/03/2022 Do You Have A Medical Power Of Cost And Risk Analysis Manager? No [email or web address] Information not available 07/03/2022 What Was The Date Of Your Most Recent Tobacco Screening? 08/07/2022 Information not available 08/07/2022 Have You Ever Been Counseled For Unhealthy Alcohol Use? No Information not available 08/07/2022 Do You Have Any Pets? Yes [email or web address] Information not available 07/03/2022 What Is Your Relationship Status? Single Information not available 07/03/2022 Do You Use Your Seat Belt Or Car Seat Routinely? Yes [email or web address] Information not available 07/03/2022 Do You Have Smoke And Carbon Monoxide Detectors In Your Home? Yes [email or web address] Information not available 07/03/2022 Are You Passively Exposed To Smoke? No [email or web address] Information not available 07/03/2022 Are There Any Smokers In Your House? No Information not available 07/03/2022 Do You Use Sunscreen Routinely? Yes [email or web address] Information not available 07/03/2022 Has Tobacco Cessation Counseling Been Provided? No Information not available 08/07/2022 Have You Recently Traveled Abroad? No [email or web address] Information not available 07/03/2022 Have You Used IV Drugs? No [email or web address] Information not available 07/03/2022 Are You Currently In School? No [email or web address] Information not available 07/03/2022 Do You Have Any Dietary Restrictions? No Information not available 07/03/2022 How Many Years Have You Used E-cigarettes Or Vape? 4 [email or web address] Information not available 07/03/2022 Sex: Unknown Functional Status Question Answer Note LastModified by Organizat ion Details LastModified Time Do you use any illicit or recreational drugs? Yes [email or web address] Information not available 07/03/2022 Do you or have you ever used any other forms of tobacco or nicotine? Yes Information not available 07/03/2022 What is your level of alcohol consumption? Moderate [email or web address] Information not available 07/03/2022 Are you currently employed? No [email or web address] Information not available 07/03/2022 Do you or have you ever used e-cigarettes or vape? Former user of electronic cigarettes [email or web address] Information not available 07/03/2022 What is your exercise level? Moderate [email or web address] Information not available 07/03/2022 Mental Status Question Answer Note LastModified by Organization D etails LastModified Time Do you feel stressed (tense, restless, nervous, or anxious, or unable to sleep at night)? [id number] [email or web address] Information not available 07/03/2022 Family History Relationship Description Onset Age of this Age Resolved Age Notes LastModified by Organization Details LastModified Time Father No current problems or disability [email or web address] Not available 07/03 12:04:26 Mother No current problems or disability [email or web address] Not available 07/03 12:04:26 Medical History No medical history recorded. Immunizations Vaccine Type Date Status Note Provider Nam e and Address Organization Details Recorded Time SARS-COV-2 (COVID-19) vaccine, UNSPECIFIED 07/03/2021 completed Priscilla Miller RN [facility], [place] - [facility] [employer] [facility] 07/03/2022 12:04:21 Past Encounters Encounter ID Performer Location Encounter Start Date Encounter Closed Date Diagnosis/Indication Diagnosis SNOMED-CT Code Diagnosis ICD10 Code Diagnosis Note [id number] Neeraj Weeks MD [facility] [address] [address] 07/03/2022 11:56:33 07/03/2022 12:21:13 Pain of right ankle joint 4881653657 8727604 M25.571 Muscle pain 81044974 M79 .10 [id number] Neeraj Weeks MD [facility] [address] [place] [address] 07/10/2022 12:26:37 07/10/2022 12:42:46 Pain of right ankle joint 3501553550 3717202 M25.571 Muscle pain 44762227 M79 .10 [id number] Neeraj Weeks MD [address] [address] 08/07/2022 10:31:30 08/07/2022 10:49:39 Adult health examination 901781550 Z00.00 Screening for disorder 897377092 Z13.9 Pain of ri ght ankle joint 1730365140 1565765 M25.571 Ex-smoker 6549666 Z87.89 1 [id number] Fam Amezquita DPM [facility] [place] [address] [place] [address] 08/07/2022 15:21:09 08/13/2022 09:20:32 Ankle pain 524519555 M25.579 order ultrasound - eval collateral ligaments and peroneal tendon secondary to injury lateral ankle sprainrice therapymin imal weight-ivan ringfollow -up after ultrasound Hyperhidrosis 868178561 R61 Educated on conditionC ontinue daily foot hygieneRx Drysolfoll ow-up as needed [id number] Neeraj Weeks MD [address] [address] 09/01/2022 15:08:27 09/01/2022 15:37:44 Pain of right ankle joint 7921394283 0679162 M25.571 chronic Ex-smoker 0262883 Z87.89 1 Hypertriglyceridemia 302 305625 E78.2 Vitamin D deficiency 347 06222 E55.9 Liver enzy mes level above reference range 074289659 R74.01 Gout 54930820 M10.9 [id number] Neeraj Weeks MD [facility] [address] [place] [address] 09/29/2022 15:34:45 09/29/2022 15:52:54 Vitamin D deficiency 58777903 E55.9 Pain of ri ght ankle joint 6955348327 8282561 M25.571 chronic Gout 45921221 M10.9 Hypertriglyceridemia 302 679346 E78.2 Liver enzy mes level above reference range 107587831 R74.01 Ex-smoker 9098973 Z87.89 1 Alcohol dependence 30354 003 F10.20 Seasonal a llergic rhinitis 215794281 J30.2 Health Concerns Section Related Observation LastModified by Organization Detai ls LastModified Time None Recorded Concern Status LastModified by Organization Details LastModified Time None Recorded Advance Directives Directive N: Payers Encounter Date Sequence Insurance Name Policy Number Policy Wilson Covered Member ID Wilson Member ID Guarantor Name 07/10/2022 1 [place] [facility] (MEDICAID REPLACEMENT - HMO) [id number] Mabel Christopher [id number] Mabel K Christopher 08/07/2022 1 [place] [facility] [facility] (MEDICAID REPLACEMENT - [place]MO) [id number] Mabel Christopher [id number] Mabel K Christopher 08/07/2022 1 [place] [facility] [facility] (MEDICAID REPLACEMENT - [place]MO) [id number] Mabel Christopher [id number] Mabel K [place] 09/01/2022 1 [place] [facility] [facility] (MEDICAID REPLACEMENT - [place]MO) [id number] Mabel [place] [id number] Mabel K [place] 09/29/2022 1 [place] [facility] [facility] (MEDICAID REPLACEMENT - [place]MO) [id number] Mabel Christopher [id number] Mabel K Christopher Notes Date Note Type Note Provider Name and Address Organization Details Recorded Time 07/10/2022 text/html Pt is here for f /u on his x-ray and pain. Doing overall better than last visit. Denies any other concern. C/o Rt ankle pain for last couple months. Denies any recent fall/injury. Denies any workman's comp. Pt works for a [employer].Pt had sports injury in high school and he has not seen any specialist at that time. Pt got better after a week and than he was back to his normal at that time. Neeraj Weeks MD [address], [facility] [address], [place], [address], [employer] [facility] [employer] 07/10/2022 12:42:25 08/07/2022 text/html . Patient is a 21-year-old male who presents the office with complaints of right ankle pain. Patient states the injury occurred on 05/26/2022. Patient states he has been having ankle soreness and constant pain with walking or lifting weights. Patient states that he can comfortably walk 2-4 blocks. Patient states the pain is 5/10. Patient describes it as shooting, aching and intermittent in nature. Patient has improved with rest and ice. Patient also is on anti-inflammatory medications. Patient denies any fracture and had x-rays which were reviewed to be negative for fracture at [place]. Patient states that he also has been having sweaty feet. Patient states that his feet sweat quite a bit even when he is active or not active. Patient denies any treatment for this condition. Patient denies any other pedal complaints. Fam Amezquita DPM [address], [facility] [address], [place], [address], [employer] [facility] [employer] 08/12/2022 13:35:01 08/07/2022 text/html Pt is here for h is annual exam. Doing overall better than last visit. Denies any other concern. C/o Rt ankle pain for last couple months. Denies any recent fall/injury. Denies any workman's comp. Pt works for a [employer].Pt had sports injury in high school and he has not seen any specialist at that time. Pt got better after a week and than he was back to his normal at that time. PMH, and reviewed. Neeraj Weeks MD [address], [facility] [address], [place], [address], [employer] [facility] [employer] 08/07/2022 10:48:33 09/01/2022 text/html Pt is here for f /u on his annual labs. Doing overall better than last visit. Denies any other concern. Chronic alcohol intake ++. C/o Rt ankle pain for last couple months. Denies any recent fall/injury. Denies any workman's comp. Pt works for a [employer].Pt had sports injury in high school and he has not seen any specialist at that time. Pt got better after a week and than he was back to his normal at that time. Neeraj Weeks MD [address], [facility] [address], [place], [address], [employer] [facility] [employer] 09/01/2022 15:41:36 09/29/2022 text/html Pt is here for f /u on his labs and chronic conditions. Doing overall better than last visit. Denies any problem with meds. Pt has not gone for his labs yet. Pt says he is very busy with his work. Pt wants to see an Automobile Contract Clerk for his chronic allergies. Chronic alcohol intake ++. Pt has cut down it compared to before. C/o Rt ankle pain for last couple months. Denies any recent fall/injury. Denies any workman's comp. Pt works for a [employer].Pt had sports injury in high school and he has not seen any specialist at that time. Pt got better after a week and than he was back to his normal at that time. Neeraj Weeks MD [address], [place], [address], [employer] [facility] [employer] 09/29/2022 15:56:34
--- NOTE | 2024-10-05 02:55 | ED_ITS ---
HPI - Abdominal Pain General Chief Complaint: Abdominal Pain Stated Complaint: abdominal & testicular pain Time Seen by Provider: 10/05/24 02:55 Source: patient Mode of arrival: ambulatory Limitations: no limitations History of Present Illness HPI narrative: Patient is a 23-year-old male with generalized abdominal pain more so in the lower abdomen that radiates down to the groin region. He has an abdominal fullness pain and distension. He has a moderate alcohol drinker with whiskey daily. associated vomit and diarrhea. MD elicited complaint: abdominal pain Pertinent past history: other ( Moderate alcohol consumption) Onset (ago): day(s) ( 5) Pain Consistency: constant Location: diffuse and groin Severity: moderate Pain scale (0-10): 5 Quality: aching, fullness and dull Radiation: other ( Groin bilateral) Migration to: no migration Exacerbating factors: nothing Relieving factors: nothing Context: confirms other ( patient having progressively worse abdominal pain that radiates down to the groin region.) Associated symptoms: vomiting and diarrhea Treatments prior to arrival: other ( none) Related Data Home Medications ?Medication ?Instructions ?Recorded ?Confirmed ?Last Taken ?Type No Home Medications 10/05/24 10/05/24 Unknown History Allergies Allergy/AdvReac Type Severity Reaction Status Date / Time peanut Allergy Intermediate Rash Verified 10/05/24 03:00 Review of Systems 2 Review of Systems: All systems reviewed & are unremarkable except as noted in HPI and below Constitutional: Constitutional: Reports no additional constitutional complaints Eyes: Eyes: Reports no additional eye complaints ENT: Reports system reviewed and no additional complaints, except as documented Cardiovascular: Cardiovascular: Reports no additional cardiovascular complaints Respiratory: Respiratory: Reports no additional respiratory complaints Gastrointestinal: Gastrointestinal: Reports no additional gastrointestinal complaints Genitourinary: Genitourinary: Reports no additional male genitourinary complaints Musculoskeletal: Musculoskeletal: Reports no additional musculoskeletal complaints Integumentary/Breasts: Skin/Breast: Reports system reviewed and no additional complaints, except as docu Neurologic: Reports system reviewed and no additional complaints, except as documented Psychiatric: Psychiatric: Reports no additional psychiatric complaints Endocrine: Endocrine: Reports no additional endocrine complaints Hematologic/Lymphatic: Hematologic/Lymphatic: Reports no additional hematologic/lymphatic complaints Allergic/Immunologic: Allergic/Immunologic: Reports no additional allergic/immunologic complaints PMFSH Past Medical History Medical History Acid reflux Surgical History Surgical History History of esophagogastroduodenoscopy (EGD) History of circumcision Social History Social History Smoking status: Never smoker Exam 2 Const: General: healthy appearing Nutritional Appearance: well nourished Orientation/consciousness: patient oriented x3 Limitations: no limitations HENMT: Head: normal to inspection Ears: external ears normal F jo/Nose/Sinus: Normal external nose present Eyes: Conjunctivae: conjunctivae normal Pupils: Equal, round and reactive pupils present EOM: EOMs intact bilaterally Neck: Neck: normal visual inspection Chest: Chest palpation & inspection: normal inspection of the chest Resp: Effort & Inspection: normal respiratory effort and not labored A uscultation: clear to auscultation bilaterally and no crackles Cardio: Rate: regular rate Rhythm: regular rhythm Heart sounds: no murmurs GI: Inspection: distended GI Palp: No Soft to palpation ( slightly firm), Yes Tenderness to palpation present (GI) ( diffuse), No Guarding due to palpation present (GI), No Rigid due to palpation, No Hernia present, No Palpable mass present and No Rebound tenderness present Auscultation: normal bowel sounds : General: Yes bladder normal to palpation Back/Spine/Pelvis: Back: no CVA tenderness Skin: General skin exam: normal color Rashes: no rashes Wounds: no wounds Neuro: General: patient oriented x3 Cranial nerves: Yes Nystagmus not present Speech: normal speech Extrem: General: normal to inspection Psych: Mental Status: mental status grossly normal Affect: normal affect Attitude: cooperative Course Vital Signs Vital signs: Vital Signs Temperature 36.4 C 10/05/24 02:43 Pulse Rate 107 H 10/05/24 02:43 Respiratory Rate 18 10/05/24 02:43 Blood Pressure 161/98 H 10/05/24 02:43 Pulse Oximetry 100 10/05/24 02:43 Oxygen Delivery Room Air 10/05/24 02:43 Temperature 37.4 C 10/05/24 06:01 Pulse Rate 103 H 10/05/24 06:01 Respiratory Rate 16 10/05/24 06:01 Blood Pressure 132/76 10/05/24 06:01 Pulse Oximetry 97 10/05/24 06:01 Oxygen Delivery Room Air 10/05/24 06:01 MDM - Abdominal Pain MDM Narrative Medical decision making narrative: patient is a 23-year-old male with abdominal pain for the past 5 days with vomiting and diarrhea. We will do a GI workup at this time. Discussed case with GI at [facility] and they will consult with the patient and admit to hospitalist. Patient has bilirubin elevation, transaminitis, questionable cholecystitis, questionable pancreatitis, thrombocytopenia, lactic acidosis, UTI, hypokalemia and colitis. Awaiting repeat lactate, coags and CPK. Lab Data Attestation: I reviewed the patient's lab results. 10/05/24 03:18 10/05/24 03:18 Labs: Lab Results 10/05/24 10/05/24 10/05/24 Range/Units 02:54 03:18 05:49 WBC 5.0 (4.8-10.8) K/mm3 RBC 3.61 L (4.70-6.10) M/mm3 Hgb 12.3 L (14.0-18.0) g/dL Hct 35.6 L (40.0-54.0) % MCV 98.6 (78.0-102.0) fL MCH 34.1 H (27.0-31.0) pg MCHC 34.6 (32-36) g/dL RDW 16.0 H (11.6-14.4) % Plt Count 70 L (150-420) K/mm3 MPV 10.3 (8.7-11.0) fl Immature Gran % (Auto) 0.4 H (0.0-0.0) % Neut % (Auto) 57.9 (50.0-70.0) % Lymph % (Auto) 26.0 (18.0-42.0) % [place] % (Auto) 13.5 H (2.0-11.0) % Eos % (Auto) 1.4 (1.0-6.0) % Baso % (Auto) 0.8 (0.0-1.0) % Lymph # (Auto) 1.31 (1.10-4.50) K/mm3 [place] # (Auto) 0.68 (0.10-0.90) K/mm3 Eos # (Auto) 0.07 (0.02-0.50) K/mm3 Baso # (Auto) 0.04 (0.00-0.10) K/mm3 Abs Immat Gran (auto) 0.02 H (0.00-0.00) K/mm3 Absolute Neuts (auto) 2.91 (1.70-7.20) K/mm3 Absolute Nucleated RBC 0.00 (0.00-0.00) K/mm3 Nucleated RBC % 0.0 (0-0.0) % % Immature Plt Fraction 4.3 (1.0-7.0) % PT Pending INR Pending APTT Pending Sodium 136 L (137-145) mmol/L Potassium 3.3 L (3.4-5.0) mmol/L Chloride 96 L (98-107) mmol/L Carbon Dioxide 26 (22-30) mmol/L Anion Gap 14 H (4-12) mmol/L BUN 5 L D (9-20) mg/dL Creatinine 0.68 L (0.7-1.3) mg/dL Estim Creat Clear Calc 140 ml/min Estimated GFR > 60 (59 - ) Glucose 104 (65-110) mg/dL Calculated Osmolality 279 L (285-295) mOsm/kg Lactic Acid 2.3 H Pending (0.4-2.0) mmol/L Calcium 8.5 (8.4-10.2) mg/dL Total Bilirubin 5.2 H (0.2-1.3) mg/dL AST 523 H (17-59) U/L ALT 109 H (6-50) U/L Alkaline Phosphatase 198 H (38-126) U/L Total Protein 7.7 (6.3-8.2) g/dL Albumin 3.9 (3.5-5.1) g/dL Lipase 277 (23-300) U/L Urine Color Dark orange (Yellow) Urine Appearance Cloudy A (Clear) Urine pH 6.5 (5.0-8.0) Ur Specific [place] 1.025 H (1.010-1.020) Urine Protein 2+ H (Negative) Urine Glucose (UA) Negative (Negative) Urine Ketones 3+ H (Negative) Ur Blood (Man) Negative (Negative) Urine Nitrate Positive H (Negative) Urine Bilirubin 3+ H (Negative) Urine Urobilinogen 4.0 H (0.2-1.0) mg/dL Leukocyte Esterase Rfl Trace H (Negative) CLARICE/UL Urine RBC 0-2 (0-2) /hpf Urine WBC 0-3 (0-3) /hpf Ur Squamous Epith Cells Rare (Few) /hpf Amorphous Sediment Few H (None) Urine Bacteria 1+ H (None) /hpf Urine Mucus Few H /lpf Imaging Data Attestation: I personally reviewed and interpreted this imaging study as follows: Radiologist's impression: ITS Impressions Abdomen/Pelvis CT 10/05/24 05:29 Impression: Hepatomegaly with diffuse fatty infiltration and probable mild cirrhotic change. There are more pronounced, masslike low attenuation regions adjacent to gallbladder fossa, measuring up to 6.6 cm in diameter, which could reflect areas of more pronounced fatty infiltration versus possibly mass lesions. Follow-up pre and postcontrast MR recommended to further assess. Small amount of abdominopelvic ascites with diffuse mesenteric edema. Markedly distended gallbladder without evidence of wall thickening or acute inflammatory change. Mild large bowel wall thickening diffusely is probably related to the presence of ascites. Correlate clinically for colitis. Discharge Plan Discharge Clinical Impression: Acute alcoholic hepatitis, Colitis, Acute UTI, Thrombocytopenia, Transaminitis Ascites Qualifiers: Ascites type: due to alcoholic cirrhosis Qualified Code(s): K70.31 - Alcoholic cirrhosis of liver with ascites Patient Disposition: Acute Care Hospital Condition: Serious Patient Language: Vietnamese Prescriptions: No Action No Home Medications Follow-up/Referrals: UNKNOWN,DOCTOR [Primary Care Provider] - Time of Disposition: 05:40
--- NOTE | 2024-10-05 02:56 | PC.NURSE ---
DARK RAMO URINE NOTED.
--- NOTE | 2024-10-05 03:01 | PC.NURSE ---
DR PAYNE AT THE BEDSIDE
--- NOTE | 2024-10-05 03:05 | PC.NURSE ---
PATIENT BEING TRANSPORTED TO CT VIA WHEEL CHAIR
[2024-10-05 03:12] LABS: Appearance Urine Cloudy (Clear); Bilirubin Urine 3+ (Negative); Blood Urine Negative (Negative); Glucose Urine UA Negative (Negative); Ketones Urine 3+ (Negative); Leukocyte Esterase Ur Trace LEU/UL (Negative); Nitrate Urine Positive (Negative); Protein Urine 2+ (Negative); Specific Grav Ur 1.025 (1.010-1.020); pH Urine 6.5 (5.0-8.0)
--- NOTE | 2024-10-05 03:14 | PC.NURSE ---
PATIENT HAS RETURNED FROM CT. LAB IS NOW AT THE BEDSIDE
[2024-10-05 03:23] LABS: Basophils Absolute Auto 0.04 K/mm3 (0.00-0.10); Basophils Percent Auto 0.8 % (0.0-1.0); Eosinophils Absolute Auto 0.07 K/mm3 (0.02-0.50); Eosinophils Percent Auto 1.4 % (1.0-6.0); Hematocrit 35.6 % (40.0-54.0); Hemoglobin 12.3 g/dL (14.0-18.0); Immature Granulocyte Absolute 0.02 K/mm3 (0.00-0.00); Immature Granulocyte Percent A 0.4 % (0.0-0.0); Immature Platelet Fraction Pct 4.3 % (1.0-7.0); Lymphocytes Absolute Auto 1.31 K/mm3 (1.10-4.50); Mean Corpuscular HGB Conc 34.6 g/dL (32-36); Mean Corpuscular Hemoglobin 34.1 pg (27.0-31.0); Mean Corpuscular Volume 98.6 fL (78.0-102.0); Mean Platelet Volume 10.3 fl (8.7-11.0); Monocytes Absolute Auto 0.68 K/mm3 (0.10-0.90); Monocytes Percent Auto 13.5 % (2.0-11.0); Neutrophils Absolute Auto 2.91 K/mm3 (1.70-7.20); Neutrophils Percent Auto 57.9 % (50.0-70.0); Platelet Count Result 70 K/mm3 (150-420); Red Blood Count 3.61 M/mm3 (4.70-6.10)
[2024-10-05 03:28] LABS: Add Urine Microscopic? YES; Amorphous Sediment Urine Few; Bacteria Urine 1+ /hpf; Color Urine Dark Orange (Yellow); Mucus Urine Few /lpf; RBC Urine 0-2 /hpf (0-2); Squamous Epithelial Cell Urine Rare /hpf (Few); WBC Urine 0-3 /hpf (0-3)
[2024-10-05 03:35] LABS: Alanine Aminotransferase 109 U/L (6-50); Albumin Level 3.9 g/dL (3.5-5.1); Alkaline Phosphatase 198 U/L (38-126); Anion Gap 14 mmol/L (4-12); Aspartate Amino Transferase 523 U/L (17-59); Bilirubin,Total 5.2 mg/dL (0.2-1.3); Blood Urea Nitrogen 5 mg/dL (9-20); Calcium 8.5 mg/dL (8.4-10.2); Carbon Dioxide 26 mmol/L (22-30); Chloride 96 mmol/L (98-107); Estimated CRCL calculation 140 ml/min; Estimated Glomerular Filt Rate > 60; Glucose 104 mg/dL (65-110); Osmolality Calculated 279 mOsm/kg (285-295); Potassium 3.3 mmol/L (3.4-5.0); Sodium 136 mmol/L (137-145); Total Protein 7.7 g/dL (6.3-8.2)
[2024-10-05 03:41] LABS: Lipase 277 U/L (23-300)
--- NOTE | 2024-10-05 03:47 | PC.NURSE ---
UPDATED PATIENT ON CURRENT PLAN OF CARE. BLOOD WORK HAS RESULTED. CURRENTLY WAITING ON IMAGING TO RESULT
[2024-10-05 03:55] LABS: Lactic Acid Reflex 2.3 mmol/L (0.4-2.0)
--- NOTE | 2024-10-05 04:52 | PC.NURSE ---
RESTING QUIETLY ON STRETCHER. CONTINUE TO WAIT ON CT RESULTS. CALL LIGHT IN REACH. DENIES ANY NEEDS
[2024-10-05 05:43] LABS: Reflex Lactic Acid Yes or No Add Lactic
--- NOTE | 2024-10-05 05:51 | PC.NURSE ---
LAB HAS FINISHED DRAWING REPEAT BLOOD WORK.
--- NOTE | 2024-10-05 06:05 | PC.NURSE ---
DR PAYNE AT THE BEDSIDE
[2024-10-05 06:08] LABS: Lactic Acid 1.2 mmol/L (0.7-2.0)
[2024-10-05 06:11] LABS: INR 1.4; Partial Thromboplastin Time 30.8 Sec (23.9-30.70); Prothrombin Time 14.6 Seconds (9.50-12.1)
[2024-10-05 06:19] LABS: Creatine Kinase 107 U/L (55-170)
--- NOTE | 2024-10-05 06:46 | PC.NURSE ---
PATIENT RESTING ON STRETCHER. GIRLFRIEND AT HIS SIDE. CALL LIGHT IN REACH
--- NOTE | 2024-10-07 12:23 | PC.NURSE ---
FINAL URINE CULTURE REPORT; NO GROWTH.
== END 2024-10-05 08:00 | disposition short-term general hospital (02) ==
PROVIDERS: Emergency Provider Emergency Medicine
DX: K70.11 Alcoholic hepatitis with ascites (principal); K70.31 Alcoholic cirrhosis of liver with ascites; K52.9 Noninfective gastroenteritis and colitis, unspecified; N39.0 Urinary tract infection, site not specified; D69.6 Thrombocytopenia, unspecified; R74.01 Elevation of levels of liver transaminase levels
CPT/HCPCS: 36415; 74176; 80053; 81001; 82550; 83605; 83690; 85025; 85055; 85610; 85730; 87086; 96374; 99285; A9270; J0696

== ENCOUNTER 2024-10-05 16:15 | Observation (INO) | payer OTHER, SELFPAY ==
--- NOTE | ~2024-10-05 | US_ITS ---
EXAMINATION: US retroperitoneal duplex ltd, US abdomen limited DATE: 10/05/2024 13:41 INDICATION: Hepatic steatosis TECHNIQUE: Multiple grayscale and Doppler ultrasound images of the right upper quadrant of the abdome n were obtained including grayscale, color Doppler, and pulsed Doppler images of the hepatic vessels. COMPARISON: CT dated 10/05/2024 and MRI dated 09/25/2024 FINDINGS: Hepatomegaly with diffuse increased echogenicity and coarsened echotexture and decreased acoustic pen etration consistent with diffuse hepatic steatosis. There is a minimal amount of perihepatic ascites. There is suggestion of subtle liver surface nodularity suspicious for cirrhosis. There is a recanali zed umbilical vein consistent with secondary portal venous hypertension. Portal venous flow was seen in the main, right and left portal veins with hepatopetal, normal direction and has normal Doppler wa veform. Normal directional flow and arterial waveforms within the hepatic artery. There is a minimal amount of perihepatic ascites. No evident ascites in the left upper quadrant, left and right lower qu adrant surrounding the midline of the pelvis. Appropriate directional flow is seen in the left and mi ddle hepatic veins extending to the inferior vena cava however visualization is poor due to the poor penetration related to hepatic steatosis. The right hepatic vein is unable to be visualized. The pancreatic head and body are normal in appearance. The pancreatic tail is not visualized. Gallbl adder is dilated to 6.4 cm in maximal diameter. No evident cholelithiasis. Common bile duct measures 5 mm diameter which is normal. Sonographic Chu sign was reported as negative by the patrol mother. IMPRESSION: 1. Enlarged and cirrhotic liver with diffuse hepatic steatosis. 2. Recanalized umbilical vein consistent with secondary portal venous hypertension. 3. Minimal perihepatic ascites. 4. Dilated gallbladder but with negative sonographic Chu's sign and without evident cholelithiasis suggest acute cholecystitis. If there is clinical concern could consider HIDA scan for further evalu ation. Reviewed, dictated and finalized at location A. IMPRESSION: 1. Enlarged and cirrhotic liver with diffuse hepatic steatosis. 2. Recanalized umbilical vein consistent with secondary portal venous hypertens ion. 3. Minimal perihepatic ascites. 4. Dilated gallbladder but with negative sonographic Chu's sign and without evident cholelithiasis suggest acute cholecystitis. If there is clinical concer n could consider HIDA scan for further evaluation.
--- NOTE | ~2024-10-05 | MR_ITS ---
EXAMINATION: MR MRCP wo/w con/w 3D wo ind DATE: 10/05/2024 15:59 INDICATION: 6.6 cm hepatic mass identified on prior CT. TECHNIQUE: Magnetic resonance imaging (MRI) of the abdomen was performed without and with 16 mL Multi lolly intravenous contrast. Sequences included coronal T2-weighted SS-FSE, coronal T2-weighted FS SS- FSE, coronal T2-weighted FS FIESTA, axial T2-weighted FS FIESTA, axial T2-weighted FIESTA, sagittal T 2-weighted SS-FSE, axial T1-weighted dual-echo FSPGR, axial T2-weighted SS-FSE, axial T1-weighted LAV A, axial T2-weighted STIR FSE. Thick-slab T2-weighted FRFSE-XL images were obtained for magnetic reso nance cholangiopancreatography (MRCP). Rotating maximum intensity projection 3-D reconstructions of t he volumetric data were created by the technologist. Postcontrast sequences included a time course of axial T1-weighted LAVA. COMPARISON: CT dated 10/05/2024 FINDINGS: ABDOMEN MRI: Heart size is normal. No pericardial or pleural effusion. Hepatomegaly and diffuse hepatic steatosis. There are lobular regions of more focal fat with increased signal on the in phase T1-weighted images and more pronounced signal dropout on opposed phase images. There are a few additional scattered sub centimeter regions of focal hepatic steatosis most evident on the post phase and postcontrast imaging . No abnormally enhancing hepatic lesions identified. There is prominent dilation of the gallbladder which measures up to 12.6 x 5.7 x 6.2 cm. No evident gallstones or gallbladder wall thickening. Splen omegaly measuring 15.9 cm in length which along with a recanalized umbilical vein and gastroesophagea l varices are consistent with portal venous hypertension related to liver disease. There is a small a mount of ascites scattered throughout the abdomen and pelvis. Pancreas, bilateral adrenal glands and kidneys are normal. Visualized portions of bowels including the appendix are normal. No pathologicall y enlarged abdominal or upper pelvic lymphadenopathy. Chronic appearing mild likely physiologic anter ior wedging at T12. Severe disc height loss at T12-L1. Normal bone marrow signal throughout. ABDOMEN MRCP: No intrahepatic biliary ductal dilation. The common bile duct measures up to 5-6 mm in diameter which remains within normal limits with no evident intraluminal filling defects to suggest choledocholithi asis. No dilation of the main pancreatic duct. IMPRESSION: 1. Enlarged cirrhotic and fatty liver with regions of more focal fat along the gallbladder fossa whic h account for the masslike regions of concern on prior CT. 2. Prominent dilation the common bile duct but without evident wall thickening, pericholecystic stran ding or gallstones to suggest acute cholecystitis. 3. Splenomegaly, gastroesophageal varices and recanalized umbilical vein consistent with portal venou s hypertension secondary to cirrhosis. 4. Small amount of ascites scattered throughout the abdomen and pelvis. Reviewed, dictated and finalized at location A. IMPRESSION: 1. Enlarged cirrhotic and fatty liver with regions of more focal fat along the gallbladder fossa which account for the masslike regions of concern on prior CT . 2. Prominent dilation the common bile duct but without evident wall thickening, pericholecystic stranding or gallstones to suggest acute cholecystitis. 3. Splenomegaly, gastroesophageal varices and recanalized umbilical vein consis tent with portal venous hypertension secondary to cirrhosis. 4. Small amount of ascites scattered throughout the abdomen and pelvis.
--- NOTE | ~2024-10-05 | US_ITS ---
TESTICULAR ULTRASOUND (Doppler ultrasound interrogation techniques used as needed for this exam.) Ordering provider: Franklyn Goodman MD History: . testicular pain . Comparison: None. FINDINGS: TESTICLES: Normal in size. The right measures 4.3x 1.6x 2.4 cm and the left measures 3.8x 1.9x 2.8 cm . Normal echogenicity bilaterally without mass lesion. Normal Doppler flow bilaterally. EPIDIDYMIDES: Normal in size . Normal echogenicity bilaterally. Both demonstrate normal Doppler flow. HYDROCELE: None. VARICOCELE: None. OTHER ABNORMALITY: None seen. IMPRESSION: normal testicular ultrasound. Reviewed, dictated and finalized at location A.
--- NOTE | 2024-10-05 08:30 | ADMGEN ---
This patient, Jose Alberto White, was admitted to Medical Room 340-01. Patient/family oriented to hospital policies and general routines including ID bracelet, bed and alarms, visiting hours, pain management, procedures, bathroom and other care routines, personal items, smoking policy, room service/diet, and visiting hours. Information on how to activate the Rapid Response Team has been discussed. Patient/Family are encouraged to report perceived risks to care and to ask questions if they do not understand what they are told or what they should do.
[2024-10-05 08:45] VITALS: BP 146/80; PULSE 105; RESP 20; TEMP 36.9; O2SAT 99
[2024-10-05 10:06] VITALS: BMI 26.2
[2024-10-05 12:05] VITALS: PULSE 107
[2024-10-05 14:00] VITALS: BP 146/80; PULSE 110; RESP 20; TEMP 37.1; O2SAT 99
--- NOTE | 2024-10-05 15:50 | P.HP_ITS ---
H&P: HPI History of Present Illness Date/Time: 10/05/24 15:50 Chief Complaint: abdominal & testicular pain Narrative: HPI narrative: Patient is a 23-year-old male with generalized abdominal pain more so in the lower abdomen that radiates down to the groin region. He has an abdominal fullness pain and distension. He has a moderate alcohol drinker with whiskey daily. associated vomit and diarrhea. patient with history of alcohol abuse and energy drinks with abdominal pain, nausea and vomiting, the CT scan of abdomen is concerning for liver cirrhosis, patient nausea and vomiting has resolved, patient does c/o scrotal pain, has been full for sometime, will do scrotal US. patient stats from here he will not drink alcohol. Review of Systems Review of Systems: All systems reviewed & are unremarkable except as noted in HPI and below PMFSH Past Medical History Medical History Acid reflux Surgical History Surgical History History of esophagogastroduodenoscopy (EGD) History of circumcision Social History Social History Smoking status: Never smoker Alcohol intake: current Drinks per week: 3 Substance use: former Do You Feel Safe in your Home?: Yes Lack of Transportation: No Lack of Food: Never True Current Housing: I Have Housing Concerned About Future Housing: No Difficulty Paying Gas/Electric Bills: No Difficulty Paying for Meds: No Currently Unemployed: No Education: Decline to Answer Difficulty w/ Childcare or Family Care: No Spiritual care concerns: No Meds Home Medications and Allergies Home Medications ?Medication ?Instructions ?Recorded ?Confirmed ?Type No Home Medications 10/05/24 10/05/24 History Allergies Allergy/AdvReac Type Severity Reaction Status Date / Time peanut Allergy Intermediate Rash Verified 10/05/24 10:53 Vital Signs Vital Signs - 24 hr 10/05/24 08:45 10/05/24 12:05 10/05/24 12:57 Temperature 36.9 C Pulse Rate 105 H 107 H Respiratory Rate 20 Blood Pressure 146/80 H Pulse Oximetry 99 Oxygen Delivery Room Air 10/05/24 14:00 Temperature 37.1 C Pulse Rate 110 H Respiratory Rate 20 Blood Pressure 146/80 H Pulse Oximetry 99 Oxygen Delivery Exam Narrative: Patient is comfortable, NAD HEENT: eyes are clear and none icteric LUNGS:CTA HEART: RR S1S2 ABD: BS+, Soft and nontender Lower extremities: no edema SKIN: nonjaundiced Neuro: grossly intact. Assessment and Plan Assessment and plan (1) Acute alcoholic hepatitis: Code(s): K70.10 - Alcoholic hepatitis without ascites Status: Acute (2) Total bilirubin, elevated: Code(s): R17 - Unspecified jaundice Status: Acute (3) Abdominal pain: Qualifiers: Abdominal location: generalized Qualified Code(s): R10.84 - Generalized abdominal pain Code(s): R10.9 - Unspecified abdominal pain Status: Acute (4) Ascites: Qualifiers: Ascites type: due to alcoholic cirrhosis Qualified Code(s): K70.31 - Alcoholic cirrhosis of liver with ascites Code(s): R18.8 - Other ascites Status: Acute (5) Scrotal pain: Code(s): N50.82 - Scrotal pain Status: Acute Plan HPI narrative: Patient is a 23-year-old male with generalized abdominal pain more so in the lower abdomen that radiates down to the groin region. He has an abdominal fullness pain and distension. He has a moderate alcohol drinker with whiskey daily. associated vomit and diarrhea. patient with history of alcohol abuse and energy drinks with abdominal pain, nausea and vomiting, the CT scan of abdomen is concerning for liver cirrhosis, patient nausea and vomiting has resolved, patient does c/o scrotal pain, has been full for sometime, will do scrotal US. patient stats from here he will not drink alcohol. Quality VTE Prophylaxis VTE prophylaxis: mechanical ordered Hospitalist [facility] Advance Care Plan I have confirmed that the patient's Advanced Care Plan is present, code status is documented, or surrogate decision maker is listed in patient medical record.: Yes Medication Reconciliation The patient is not eligible for med reconciliation; the patient is in a emergent medical situation where delaying treatment would jeopardize the patients health.: Yes
--- NOTE | 2024-10-05 16:23 | P.CONGI_ITS ---
Assessment and Plan Assessment and plan (1) Acute alcoholic hepatitis: Code(s): K70.10 - Alcoholic hepatitis without ascites Status: Acute Assessment and Plan: The patient has clinical, laboratory evidence of alcoholic hepatitis. According to the imaging studies, there is portal hypertension due to recanalization of the umbilical vein, and nodularity of the liver reason the high suspicion for cirrhosis. The AST level is out of proportion to the expected elevation in pure alcoholic hepatitis, but can be explained by the concomitant use of Tylenol. The patient's meld 3.0 score is 17, not reaching th e level in which corticosteroids are indicated ( 20). However, will keep a close eye on his clinical course, especially regarding alcohol withdrawal symptoms. more importantly, the MRI will clarify the finding on the noncontrast CT, regarding the finding of hypodense mass adjacent to the gallbladder for which differential diagnosis includes geographic fat versus malignancy. GI Consult Note Consult date/time: 10/05/24 16:23 HPI: The consultation was conducted with the patient's father, as Jose Alberto White, a 23-year-old male, was undergoing an MRI at the time of the visit. Jose Alberto was admitted today with a chief complaint of abdominal pain and discomfort. His father reports that Jose Alberto has been consuming one bottle of Caleb Johnson daily for the past year, though prior to that, his alcohol intake was described as like a normal young man. Jose Alberto lives with his father, is currently unemployed, and denies illegal drug use. However, he frequently takes Tylenol for an ankle lesion. His laboratory data from today are significant: white count 5.0, hemoglobin 12.3, hematocrit 35.6, platelet count 70,000, INR 1.4, sodium 136, potassium 3.3, creatinine 0.68, total bilirubin 5.2, AST 523, ALT 109, alkaline phosphatase 188, CPK 107, and albumin 3.9. These values result in a MELD 3.0 score of 17 points. A non-contrast CT scan performed this morning revealed diffuse hepatic steatosis and a nodular liver contour, suggestive of chronic liver disease. It also showed moderate ascites and a 6.6 cm low-attenuation, mass-like lesion adjacent to the gallbladder, along with diffuse mesenteric edema. An abdominal Doppler sonogram performed this afternoon confirmed subtle nodularity in the liver, hepatomegaly, marked steatosis, and moderate ascites. Review of Systems Review of Systems: All systems reviewed & are unremarkable except as noted in HPI and below PMFSH Past Medical History Medical History Acid reflux Surgical History Surgical History History of esophagogastroduodenoscopy (EGD) History of circumcision Social History Social History Smoking status: Never smoker Alcohol intake: current Drinks per week: 3 Substance use: former Do You Feel Safe in your Home?: Yes Lack of Transportation: No Lack of Food: Never True Current Housing: I Have Housing Concerned About Future Housing: No Difficulty Paying Gas/Electric Bills: No Difficulty Paying for Meds: No Currently Unemployed: No Education: Decline to Answer Difficulty w/ Childcare or Family Care: No Spiritual care concerns: No Meds Home Medications and Allergies Home Medications ?Medication ?Instructions ?Recorded ?Confirmed ?Type No Home Medications 10/05/24 10/05/24 History Allergies Allergy/AdvReac Type Severity Reaction Status Date / Time peanut Allergy Intermediate Rash Verified 10/05/24 10:53 Vital Signs Vital Signs - 24 hr 10/05/24 08:45 10/05/24 12:05 10/05/24 12:57 Temperature 98.5 F Pulse Rate 105 H 107 H Respiratory Rate 20 Blood Pressure 146/80 H Pulse Oximetry 99 Oxygen Delivery Room Air 10/05/24 14:00 Temperature 98.8 F Pulse Rate 110 H Respiratory Rate 20 Blood Pressure 146/80 H Pulse Oximetry 99 Oxygen Delivery Exam Narrative: Deferred due to the patient's abscence at the moment of the visit
[2024-10-05] MEDS: THIAMINE HCL INJ 100 MG, FOLIC ACID INJ 1 MG, MAGNESIUM SULFATE INJ 1 GM, MULTIVITAMINS... 125 MG IV CONT (17:19)
[2024-10-05 18:19] LABS: Alanine Aminotransferase 106 U/L (6-50); Albumin Level 3.5 g/dL (3.5-5.1); Alkaline Phosphatase 184 U/L (38-126); Anion Gap 16 mmol/L (4-12); Aspartate Amino Transferase 507 U/L (17-59); Bilirubin,Total 4.9 mg/dL (0.2-1.3); Blood Urea Nitrogen 5 mg/dL (9-20); Calcium 8.6 mg/dL (8.4-10.2); Carbon Dioxide 25 mmol/L (22-30); Chloride 95 mmol/L (98-107); Estimated CRCL calculation 173 ml/min; Estimated Glomerular Filt Rate > 60; Glucose 104 mg/dL (65-110); Magnesium 1.5 mg/dL (1.6-2.3); Potassium 3.3 mmol/L (3.4-5.0); Sodium 136 mmol/L (137-145); Total Protein 8.1 g/dL (6.3-8.2)
[2024-10-05 18:20] LABS: INR 1.5
[2024-10-05 18:22] LABS: Glucose Point of Care 145 mg/dl (65-105)
[2024-10-05 20:00] VITALS: PULSE 102
[2024-10-05 20:27] VITALS: BP 133/91; PULSE 106; RESP 18; TEMP 37.1; O2SAT 98
[2024-10-06] VITALS (9 sets, daily range): BP systolic 114–133; BP diastolic 79–84; PULSE 101–113; RESP 14–18; TEMP 36.4–37.2; O2SAT 96–98
[2024-10-06 00:05] LABS: Glucose Point of Care 92 mg/dl (65-105)
[2024-10-06 06:09] LABS: Basophils Percent Auto 0.4 % (0.2-1.2); Eosinophils Absolute Auto 0.1 K/mm3 (0-0.3); Hemoglobin 12.1 g/dL (14.0-18.0); Immature Granulocyte Absolute 0.01 K/mm3 (0.00-0.031); Immature Granulocyte Percent A 0.2 % (0-0.5); Immature Platelet Fraction Pct 6.6 % (0.9-11.2); Lymphocytes Absolute Auto 1.64 K/mm3 (0.9-3.2); Mean Corpuscular HGB Conc 34.6 g/dl (32-36); Mean Corpuscular Hemoglobin 34.4 pg (26-34); Mean Corpuscular Volume 99.4 fl (80-100); Mean Platelet Volume 11.4 fl (7.4-10.4); Monocytes Absolute Auto 0.6 K/mm3 (0.1-0.6); Monocytes Percent Auto 12.7 % (2.6-8.5); Neutrophils Absolute Auto 2.2 K/mm3 (1.3-6.7); Neutrophils Percent Auto 48.7 % (45.5-73.1); Platelet Count Result 63 k/mm3 (150-375); Red Blood Count 3.52 M/mm3 (4.6-6.20); Red Cell Distribution Width 16.7 % (11.5-14.5); White Blood Count 4.6 K/mm3 (4.5-10.0)
[2024-10-06 06:12] LABS: Glucose Point of Care 95 mg/dl (65-105)
[2024-10-06 06:20] LABS: Alanine Aminotransferase 105 U/L (6-50); Albumin Level 3.4 g/dL (3.5-5.1); Alkaline Phosphatase 172 U/L (38-126); Anion Gap 10 mmol/L (4-12); Aspartate Amino Transferase 446 U/L (17-59); Bilirubin,Total 4.8 mg/dL (0.2-1.3); Blood Urea Nitrogen 5 mg/dL (9-20); Calcium 8.2 mg/dL (8.4-10.2); Carbon Dioxide 29 mmol/L (22-30); Chloride 97 mmol/L (98-107); Estimated CRCL calculation 160 ml/min; Estimated Glomerular Filt Rate > 60; Glucose 98 mg/dL (65-110); Magnesium 1.8 mg/dL (1.6-2.3); Potassium 3.7 mmol/L (3.4-5.0); Sodium 136 mmol/L (137-145); Total Protein 7.9 g/dL (6.3-8.2)
--- NOTE | 2024-10-06 10:14 | P.PNGI_ITS ---
Progress Note: A&P Assessment and Plan (1) Alcoholic hepatitis: Code(s): K70.10 - Alcoholic hepatitis without ascites Status: Acute Assessment and Plan: patient with alcoholic hepatitis and portal hypertension. will keep him hospitalized for an average of 4-5 days for withdrawal precautions. MRI did not show evidence of neoplasm. I had a long conversation with the patient regarding abstinence, however it is difficult since both his parents have issues with alcohol abuse. Subjective Date/time seen: 10/06/24 10:14 Interval history: patient doing well. Did not have any signs or symptoms of withdrawal. Did not require intravenous medication. Exam Narrative: Mild jaundice. Abdomen: Enlarged hard right lobe of the liver, 8 cm below right costal margin. Objective Data Vital Signs Vital Signs: Vital Signs - 24 hr 10/05/24 12:05 10/05/24 12:57 10/05/24 14:00 Temperature 98.8 F Pulse Rate 107 H 110 H Respiratory Rate 20 Blood Pressure 146/80 H Pulse Oximetry 99 Oxygen Delivery Room Air 10/05/24 20:00 10/05/24 20:27 10/06/24 00:00 Temperature 98.8 F Pulse Rate 102 H 106 H 102 H Respiratory Rate 18 Blood Pressure 133/91 H Pulse Oximetry 98 Oxygen Delivery 10/06/24 04:00 10/06/24 04:14 Temperature 97.5 F L Pulse Rate 108 H 106 H Respiratory Rate 18 Blood Pressure 133/83 Pulse Oximetry 96 Oxygen Delivery Intake/Output Intake/Output: Intake & Output 10/03/24 10/04/24 10/05/24 10/06/24 23:59 23:59 23:59 23:59 Intake Total 0 268 Balance 0 268 Meds/Results Medications: Active Medications Generic Name Dose Route Start Last Admin Trade Name Freq PRN Reason Stop Dose Admin Haloperidol Lactate 2 mg 10/05/24 16:43 Haloperidol Lactate 5 Mg/Ml Vial IV PUSH Q2H PRN Delirium Lorazepam 2 mg 10/05/24 16:43 Lorazepam Inj (*Crx) 2 Mg/Ml Vial IV PUSH Q4H PRN CIWA 8-15 Radiology Results: ITS Impressions Abdomen Ultrasound 10/05/24 15:56 IMPRESSION: 1. Enlarged and cirrhotic liver with diffuse hepatic steatosis. 2. Recanalized umbilical vein consistent with secondary portal venous hypertension. 3. Minimal perihepatic ascites. 4. Dilated gallbladder but with negative sonographic Hcu's sign and without evident cholelithiasis suggest acute cholecystitis. If there is clinical concern could consider HIDA scan for further evaluation. Arterial/Peripheral Duplex 10/05/24 15:56 IMPRESSION: 1. Enlarged and cirrhotic liver with diffuse hepatic steatosis. 2. Recanalized umbilical vein consistent with secondary portal venous hypertension. 3. Minimal perihepatic ascites. 4. Dilated gallbladder but with negative sonographic Chu's sign and without evident cholelithiasis suggest acute cholecystitis. If there is clinical concern could consider HIDA scan for further evaluation. Scrotum Ultrasound 10/05/24 17:20 IMPRESSION: normal testicular ultrasound. MRCP 10/05/24 17:24 IMPRESSION: 1. Enlarged cirrhotic and fatty liver with regions of more focal fat along the gallbladder fossa which account for the masslike regions of concern on prior CT. 2. Prominent dilation the common bile duct but without evident wall thickening, pericholecystic stranding or gallstones to suggest acute cholecystitis. 3. Splenomegaly, gastroesophageal varices and recanalized umbilical vein consistent with portal venous hypertension secondary to cirrhosis. 4. Small amount of ascites scattered throughout the abdomen and pelvis. Labs Labs: Laboratory Results - last 24 hr 10/05/24 10/05/24 10/06/24 17:31 18:18 00:03 WBC RBC Hgb Hct MCV MCH MCHC RDW Plt Count MPV Immature Gran % (Auto) Neut % (Auto) Lymph % (Auto) [place] % (Auto) Eos % (Auto) Baso % (Auto) Lymph # (Auto) [place] # (Auto) Eos # (Auto) Baso # (Auto) Abs Immat Gran (auto) Absolute Neuts (auto) Absolute Nucleated RBC Nucleated RBC % % Immature Plt Fraction PT 18.0 H INR 1.5 Sodium 136 L Potassium 3.3 L Chloride 95 L Carbon Dioxide 25 Anion Gap 16 H BUN 5 L Creatinine 0.56 L Estim Creat Clear Calc 173 Estimated GFR > 60 Glucose 104 POC Capillary Glucose 145 H 92 Calcium 8.6 Magnesium 1.5 L Total Bilirubin 4.9 H AST 507 H ALT 106 H Alkaline Phosphatase 184 H Total Protein 8.1 Albumin 3.5 10/06/24 10/06/24 04:17 05:54 WBC 4.6 RBC 3.52 L Hgb 12.1 L D Hct 35.0 L MCV 99.4 MCH 34.4 H MCHC 34.6 RDW 16.7 H Plt Count 63 L D MPV 11.4 H Immature Gran % (Auto) 0.2 Neut % (Auto) 48.7 Lymph % (Auto) 36.0 [place] % (Auto) 12.7 H Eos % (Auto) 2.0 Baso % (Auto) 0.4 Lymph # (Auto) 1.64 [place] # (Auto) 0.6 Eos # (Auto) 0.1 Baso # (Auto) 0.0 Abs Immat Gran (auto) 0.01 Absolute Neuts (auto) 2.2 Absolute Nucleated RBC 0.000 Nucleated RBC % 0.0 % Immature Plt Fraction 6.6 PT INR Sodium 136 L Potassium 3.7 Chloride 97 L Carbon Dioxide 29 Anion Gap 10 BUN 5 L Creatinine 0.61 L Estim Creat Clear Calc 160 Estimated GFR > 60 Glucose 98 POC Capillary Glucose 95 Calcium 8.2 L Magnesium 1.8 Total Bilirubin 4.8 H AST 446 H ALT 105 H Alkaline Phosphatase 172 H Total Protein 7.9 Albumin 3.4 L
[2024-10-06 11:42] LABS: Glucose Point of Care 101 mg/dl (65-105)
--- NOTE | 2024-10-06 15:45 | P.PNIM_ITS ---
Progress Note: A&P Assessment and Plan (1) Acute alcoholic hepatitis: Code(s): K70.10 - Alcoholic hepatitis without ascites Status: Inactive (2) Total bilirubin, elevated: Code(s): R17 - Unspecified jaundice Status: Inactive (3) Abdominal pain: Qualifiers: Abdominal location: generalized Qualified Code(s): R10.84 - Generalized abdominal pain Code(s): R10.9 - Unspecified abdominal pain Status: Acute (4) Ascites: Qualifiers: Ascites type: due to alcoholic cirrhosis Qualified Code(s): K70.31 - Alcoholic cirrhosis of liver with ascites Code(s): R18.8 - Other ascites Status: Inactive (5) Scrotal pain: Code(s): N50.82 - Scrotal pain Status: Acute Plan HPI narrative: Patient is a 23-year-old male with generalized abdominal pain more so in the lower abdomen that radiates down to the groin region. He has an abdominal fullness pain and distension. He has a moderate alcohol drinker with whiskey daily. associated vomit and diarrhea. patient with history of alcohol abuse and energy drinks with abdominal pain, nausea and vomiting, the CT scan of abdomen is concerning for liver cirrhosis, patient nausea and vomiting has resolved, patient does c/o scrotal pain, has been full for sometime, will do scrotal US. patient stats from here he will not drink alcohol. Patent with history of alcohol and is found to have cirrhosis of liver, does not show any sign or symptoms of alcohol withdrawal, we have placed under CIWA protocol, and being monitor, patient father is present in the room and again patient is instructed abstain from alcohol to prevent further injury to the liver. patient stats he has difficulty sleeping will add melatonin at bed time a nd monitor. patient also complained of scrotal pain, testicle US is normal. Subjective Date/time seen: 10/06/24 15:45 Interval history: Narrative: ER-HPI narrative: Patient is a 23-year-old male with generalized abdominal pain more so in the lower abdomen that radiates down to the groin region. He has an abdominal fullness pain and distension. He has a moderate alcohol drinker with whiskey daily. associated vomit and diarrhea. patient with history of alcohol abuse and energy drinks with abdominal pain, nausea and vomiting, the CT scan of abdomen is concerning for liver cirrhosis, patient nausea and vomiting has resolved, patient does c/o scrotal pain, has been full for sometime, will do scrotal US. patient stats from here he will not drink alcohol. Patent with history of alcohol and is found to have cirrhosis of liver, does not show any sign or symptoms of alcohol withdrawal, we have placed under CIWA protocol, and being monitor, patient father is present in the room and again patient is instructed abstain from alcohol to prevent further injury to the liver. patient stats he has difficulty sleeping will add melatonin at bed time and monitor. patient also complained of scrotal pain, testicle US is normal. Review of Systems Review of Systems: All systems reviewed & are unremarkable except as noted in HPI and below Exam Narrative: Patient is comfortable, NAD HEENT: eyes are clear and none icteric LUNGS:CTA HEART: RR S1S2 ABD: BS+, Soft and nontender Lower extremities: no edema SKIN: nonjaundiced Neuro: grossly intact. Objective Data Vital Signs Vital Signs: Vital Signs - 24 hr 10/05/24 20:00 10/05/24 20:27 10/06/24 00:00 Temperature 37.1 C Pulse Rate 102 H 106 H 102 H Respiratory Rate 18 Blood Pressure 133/91 H Pulse Oximetry 98 Oxygen Delivery 10/06/24 04:00 10/06/24 04:14 10/06/24 08:00 Temperature 36.4 C L Pulse Rate 108 H 106 H Respiratory Rate 18 Blood Pressure 133/83 Pulse Oximetry 96 Oxygen Delivery Room Air 10/06/24 08:00 10/06/24 12:00 10/06/24 13:52 Temperature 37.2 C Pulse Rate 101 H 109 H 113 H Respiratory Rate 14 Blood Pressure 129/79 Pulse Oximetry 98 Oxygen Delivery Intake/Output Intake/Output: Intake & Output 10/03/24 10/04/24 10/05/24 10/06/24 23:59 23:59 23:59 23:59 Intake Total 0 386 Balance 0 386 Meds/Results Medications: Active Medications Generic Name Dose Route Start Last Admin Trade Name Freq PRN Reason Stop Dose Admin Haloperidol Lactate 2 mg 10/05/24 16:43 Haloperidol Lactate 5 Mg/Ml Vial IV PUSH Q2H PRN Delirium Lorazepam 2 mg 10/05/24 16:43 Lorazepam Inj (*Crx) 2 Mg/Ml Vial IV PUSH Q4H PRN CIWA 8-15 Melatonin 3 mg 10/06/24 21:00 Melatonin 3 Mg Tablet PO HS [facility] Radiology Results: ITS Impressions Abdomen Ultrasound 10/05/24 15:56 IMPRESSION: 1. Enlarged and cirrhotic liver with diffuse hepatic steatosis. 2. Recanalized umbilical vein consistent with secondary portal venous hypertension. 3. Minimal perihepatic ascites. 4. Dilated gallbladder but with negative sonographic Chu's sign and without evident cholelithiasis suggest acute cholecystitis. If there is clinical concern could consider HIDA scan for further evaluation. Arterial/Peripheral Duplex 10/05/24 15:56 IMPRESSION: 1. Enlarged and cirrhotic liver with diffuse hepatic steatosis. 2. Recanalized umbilical vein consistent with secondary portal venous hypertension. 3. Minimal perihepatic ascites. 4. Dilated gallbladder but with negative sonographic Chu's sign and without evident cholelithiasis suggest acute cholecystitis. If there is clinical concern could consider HIDA scan for further evaluation. Scrotum Ultrasound 10/05/24 17:20 IMPRESSION: normal testicular ultrasound. MRCP 10/05/24 17:24 IMPRESSION: 1. Enlarged cirrhotic and fatty liver with regions of more focal fat along the gallbladder fossa which account for the masslike regions of concern on prior CT. 2. Prominent dilation the common bile duct but without evident wall thickening, pericholecystic stranding or gallstones to suggest acute cholecystitis. 3. Splenomegaly, gastroesophageal varices and recanalized umbilical vein consistent with portal venous hypertension secondary to cirrhosis. 4. Small amount of ascites scattered throughout the abdomen and pelvis. Labs Labs: Laboratory Results - last 24 hr 10/05/24 10/05/24 10/06/24 17:31 18:18 00:03 WBC RBC Hgb Hct MCV MCH MCHC RDW Plt Count MPV Immature Gran % (Auto) Neut % (Auto) Lymph % (Auto) [place] % (Auto) Eos % (Auto) Baso % (Auto) Lymph # (Auto) [place] # (Auto) Eos # (Auto) Baso # (Auto) Abs Immat Gran (auto) Absolute Neuts (auto) Absolute Nucleated RBC Nucleated RBC % % Immature Plt Fraction PT 18.0 H INR 1.5 Sodium 136 L Potassium 3.3 L Chloride 95 L Carbon Dioxide 25 Anion Gap 16 H BUN 5 L Creatinine 0.56 L Estim Creat Clear Calc 173 Estimated GFR > 60 Glucose 104 POC Capillary Glucose 145 H 92 Calcium 8.6 Magnesium 1.5 L Total Bilirubin 4.9 H AST 507 H ALT 106 H Alkaline Phosphatase 184 H Total Protein 8.1 Albumin 3.5 10/06/24 10/06/24 10/06/24 04:17 05:54 11:40 WBC 4.6 RBC 3.52 L Hgb 12.1 L D Hct 35.0 L MCV 99.4 MCH 34.4 H MCHC 34.6 RDW 16.7 H Plt Count 63 L D MPV 11.4 H Immature Gran % (Auto) 0.2 Neut % (Auto) 48.7 Lymph % (Auto) 36.0 [place] % (Auto) 12.7 H Eos % (Auto) 2.0 Baso % (Auto) 0.4 Lymph # (Auto) 1.64 [place] # (Auto) 0.6 Eos # (Auto) 0.1 Baso # (Auto) 0.0 Abs Immat Gran (auto) 0.01 Absolute Neuts (auto) 2.2 Absolute Nucleated RBC 0.000 Nucleated RBC % 0.0 % Immature Plt Fraction 6.6 PT INR Sodium 136 L Potassium 3.7 Chloride 97 L Carbon Dioxide 29 Anion Gap 10 BUN 5 L Creatinine 0.61 L Estim Creat Clear Calc 160 Estimated GFR > 60 Glucose 98 POC Capillary Glucose 95 101 Calcium 8.2 L Magnesium 1.8 Total Bilirubin 4.8 H AST 446 H ALT 105 H Alkaline Phosphatase 172 H Total Protein 7.9 Albumin 3.4 L Quality VTE Prophylaxis VTE prophylaxis: mechanical ordered
--- NOTE | 2024-10-06 16:56 | PCRCNOTE ---
Patient has never had a home bipap, cpap, or trilogy unit. He stated his mom has one but he has never had one.
[2024-10-06 17:13] LABS: INR 1.4
[2024-10-06 17:55] LABS: Glucose Point of Care 129 mg/dl (65-105)
[2024-10-06] MEDS: MELATONIN 3 MG TABLET PO (21:55)
[2024-10-07] VITALS (9 sets, daily range): BP systolic 105–129; BP diastolic 67–75; PULSE 99–108; RESP 16–18; TEMP 35.8–37.3; O2SAT 90–100
[2024-10-07 00:46] LABS: Glucose Point of Care 108 mg/dl (65-105)
[2024-10-07 06:07] LABS: Basophils Percent Auto 0.6 % (0.2-1.2); Eosinophils Absolute Auto 0.1 K/mm3 (0-0.3); Eosinophils Percent Auto 1.6 % (0-4.4); Hemoglobin 12.1 g/dL (14.0-18.0); Immature Granulocyte Absolute 0.02 K/mm3 (0.00-0.031); Immature Granulocyte Percent A 0.4 % (0-0.5); Immature Platelet Fraction Pct 7.5 % (0.9-11.2); Lymphocytes Absolute Auto 1.81 K/mm3 (0.9-3.2); Lymphocytes Percent Auto 37.2 % (18.3-44.2); Mean Corpuscular HGB Conc 34.6 g/dl (32-36); Mean Corpuscular Hemoglobin 34.5 pg (26-34); Mean Corpuscular Volume 99.7 fl (80-100); Mean Platelet Volume 11.3 fl (7.4-10.4); Monocytes Absolute Auto 0.7 K/mm3 (0.1-0.6); Monocytes Percent Auto 15.2 % (2.6-8.5); Neutrophils Absolute Auto 2.2 K/mm3 (1.3-6.7); Platelet Count Result 64 k/mm3 (150-375); Red Blood Count 3.51 M/mm3 (4.6-6.20); Red Cell Distribution Width 17.3 % (11.5-14.5); White Blood Count 4.9 K/mm3 (4.5-10.0)
[2024-10-07 06:18] LABS: Alanine Aminotransferase 95 U/L (6-50); Albumin Level 3.2 g/dL (3.5-5.1); Alkaline Phosphatase 170 U/L (38-126); Anion Gap 9 mmol/L (4-12); Aspartate Amino Transferase 412 U/L (17-59); Bilirubin,Total 4.5 mg/dL (0.2-1.3); Blood Urea Nitrogen 5 mg/dL (9-20); Carbon Dioxide 28 mmol/L (22-30); Chloride 100 mmol/L (98-107); Estimated CRCL calculation 149 ml/min; Estimated Glomerular Filt Rate > 60; Glucose 100 mg/dL (65-110); Magnesium 1.8 mg/dL (1.6-2.3); Potassium 3.7 mmol/L (3.4-5.0); Sodium 137 mmol/L (137-145); Total Protein 7.7 g/dL (6.3-8.2)
[2024-10-07 06:37] LABS: Glucose Point of Care 92 mg/dl (65-105)
--- NOTE | 2024-10-07 11:45 | P.PNGI_ITS ---
Progress Note: A&P Assessment and Plan (1) Alcoholic hepatitis: Code(s): K70.10 - Alcoholic hepatitis without ascites Status: Acute Assessment and Plan: The patient remains clinically and biochemically stable, with no evidence of worsening. He is currently under observation for alcohol withdrawal precautions and is anticipated to be discharged in 2 days. He requires outpatient follow-up with the GI clinic, and baclofen will be prescribed as a preventive measure for alcohol consumption. Subjective Date/time seen: 10/07/24 11:45 Interval history: patient doing well, no evidence of impending withdrawal symptoms. Exam Narrative: Abdomen: exam unchanged from baseline. Objective Data Vital Signs Vital Signs: Vital Signs - 24 hr 10/06/24 12:00 10/06/24 13:52 10/06/24 16:00 Temperature 99.0 F Pulse Rate 109 H 113 H 105 H Respiratory Rate 14 Blood Pressure 129/79 Pulse Oximetry 98 Oxygen Delivery 10/06/24 19:48 10/06/24 20:00 10/06/24 20:00 Temperature 98.4 F Pulse Rate 106 H 107 H Respiratory Rate 18 Blood Pressure 114/84 Pulse Oximetry 98 Oxygen Delivery Room Air 10/07/24 00:00 10/07/24 04:00 10/07/24 04:26 Temperature 99.1 F Pulse Rate 100 101 H 104 H Respiratory Rate 16 Blood Pressure 105/75 Pulse Oximetry 98 Oxygen Delivery 10/07/24 08:00 10/07/24 08:00 Temperature Pulse Rate 108 H Respiratory Rate Blood Pressure Pulse Oximetry 98 Oxygen Delivery Room Air Intake/Output Intake/Output: Intake & Output 10/04/24 10/05/24 10/06/24 10/07/24 23:59 23:59 23:59 23:59 Intake Total 0 1354 520 Balance 0 1354 520 Meds/Results Medications: Active Medications Generic Name Dose Route Start Last Admin Trade Name Freq PRN Reason Stop Dose Admin Haloperidol Lactate 2 mg 10/05/24 16:43 Haloperidol Lactate 5 Mg/Ml Vial IV PUSH Q2H PRN Delirium Lorazepam 2 mg 10/05/24 16:43 Lorazepam Inj (*Crx) 2 Mg/Ml Vial IV PUSH Q4H PRN CIWA 8-15 Melatonin 3 mg 10/06/24 21:00 10/06/24 21:55 Melatonin 3 Mg Tablet PO 3 mg HS AN Administration Radiology Results: ITS Impressions Abdomen Ultrasound 10/05/24 15:56 IMPRESSION: 1. Enlarged and cirrhotic liver with diffuse hepatic steatosis. 2. Recanalized umbilical vein consistent with secondary portal venous hype rtension. 3. Minimal perihepatic ascites. 4. Dilated gallbladder but with negative sonographic Chu's sign and without evident cholelithiasis suggest acute cholecystitis. If there is clinical concern could consider HIDA scan for further evaluation. Arterial/Peripheral Duplex 10/05/24 15:56 IMPRESSION: 1. Enlarged and cirrhotic liver with diffuse hepatic steatosis. 2. Recanalized umbilical vein consistent with secondary portal venous hypertension. 3. Minimal perihepatic ascites. 4. Dilated gallbladder but with negative sonographic Chu's sign and without evident cholelithiasis suggest acute cholecystitis. If there is clinical concern could consider HIDA scan for further evaluation. Scrotum Ultrasound 10/05/24 17:20 IMPRESSION: normal testicular ultrasound. MRCP 10/05/24 17:24 IMPRESSION: 1. Enlarged cirrhotic and fatty liver with regions of more focal fat along the gallbladder fossa which account for the masslike regions of concern on prior CT. 2. Prominent dilation the common bile duct but without evident wall thickening, pericholecystic stranding or gallstones to suggest acute cholecystitis. 3. Splenomegaly, gastroesophageal varices and recanalized umbilical vein consistent with portal venous hypertension secondary to cirrhosis. 4. Small amount of ascites scattered throughout the abdomen and pelvis. Labs Labs: Laboratory Results - last 24 hr 10/06/24 10/06/24 10/07/24 16:57 17:52 00:19 WBC RBC Hgb Hct MCV MCH MCHC RDW Plt Count MPV Immature Gran % (Auto) Neut % (Auto) Lymph % (Auto) [place] % (Auto) Eos % (Auto) Baso % (Auto) Lymph # (Auto) [place] # (Auto) Eos # (Auto) Baso # (Auto) Abs Immat Gran (auto) Absolute Neuts (auto) Absolute Nucleated RBC Nucleated RBC % % Immature Plt Fraction PT 17.0 H INR 1.4 Sodium Potassium Chloride Carbon Dioxide Anion Gap BUN Creatinine Estim Creat Clear Calc Estimated GFR Glucose POC Capillary Glucose 129 H 108 H Calcium Magnesium Total Bilirubin AST ALT Alkaline Phosphatase Total Protein Albumin 10/07/24 10/07/24 04:24 05:08 WBC 4.9 RBC 3.51 L Hgb 12.1 L Hct 35.0 L MCV 99.7 MCH 34.5 H MCHC 34.6 RDW 17.3 H Plt Count 64 L MPV 11.3 H Immature Gran % (Auto) 0.4 Neut % (Auto) 45.0 L Lymph % (Auto) 37.2 [place] % (Auto) 15.2 H Eos % (Auto) 1.6 Baso % (Auto) 0.6 Lymph # (Auto) 1.81 [place] # (Auto) 0.7 H Eos # (Auto) 0.1 Baso # (Auto) 0.0 Abs Immat Gran (auto) 0.02 Absolute Neuts (auto) 2.2 Absolute Nucleated RBC 0.000 Nucleated RBC % 0.0 % Immature Plt Fraction 7.5 PT INR Sodium 137 Potassium 3.7 Chloride 100 Carbon Dioxide 28 Anion Gap 9 BUN 5 L Creatinine 0.66 L Estim Creat Clear Calc 149 Estimated GFR > 60 Glucose 100 POC Capillary Glucose 92 Calcium 8.0 L Magnesium 1.8 Total Bilirubin 4.5 H AST 412 H ALT 95 H Alkaline Phosphatase 170 H Total Protein 7.7 Albumin 3.2 L
[2024-10-07 11:56] LABS: Glucose Point of Care 109 mg/dl (65-105)
--- NOTE | 2024-10-07 12:59 | P.PNIM_ITS ---
Progress Note: A&P Assessment and Plan (1) Acute alcoholic hepatitis: Code(s): K70.10 - Alcoholic hepatitis without ascites Status: Inactive (2) Total bilirubin, elevated: Code(s): R17 - Unspecified jaundice Status: Inactive (3) Abdominal pain: Qualifiers: Abdominal location: generalized Qualified Code(s): R10.84 - Generalized abdominal pain Code(s): R10.9 - Unspecified abdominal pain Status: Acute (4) Ascites: Qualifiers: Ascites type: due to alcoholic cirrhosis Qualified Code(s): K70.31 - Alcoholic cirrhosis of liver with ascites Code(s): R18.8 - Other ascites Status: Inactive (5) Scrotal pain: Code(s): N50.82 - Scrotal pain Status: Acute Plan Patient is a 23-year-old male with generalized abdominal pain more so in the lower abdomen that radiates down to the groin region. He has an abdominal fullness pain and distension. He has a moderate alcohol drinker with whiskey daily. associated vomit and diarrhea. patient with history of alcohol abuse and energy drinks with abdominal pain, nausea and vomiting, the CT scan of abdomen is concerning for liver cirrhosis, patient nausea and vomiting has resolved, patient does c/o scrotal pain, has been full for sometime, scrotal ultrasound unremarkable.. patient stats from here he will not drink alcohol. Patent with history of alcohol and is found to have cirrhosis of liver, does not show any sign or symptoms of alcohol withdrawal, we have placed under CIWA protocol, and being monitor, patient father is present in the room and again patient is instructed abstain from alcohol to prevent further injury to the liver. patient stats he has difficulty sleeping will add melatonin at bed time and monitor. patient also complained of scrotal pain, testicle US is normal. Will check alpha-1 antitrypsin level check hepatitis and other markers for cirrhosis Need follow-up with GI regularly Subjective Date/time seen: 10/07/24 12:59 Interval history: No overnight events. Feels well. No signs of withdrawal. Review of Systems Review of Systems: All systems reviewed & are unremarkable except as noted in HPI and below Exam Narrative: Patient is comfortable, NAD HEENT: eyes are clear and none icteric LUNGS:CTA HEART: RR S1S2 ABD: BS+, Soft and nontender Lower extremities: no edema SKIN: nonjaundiced Neuro: grossly intact. Objective Data Vital Signs Vital Signs: Vital Signs - 24 hr 10/06/24 13:52 10/06/24 16:00 10/06/24 19:48 Temperature 99.0 F 98.4 F Pulse Rate 113 H 105 H 106 H Respiratory Rate 14 18 Blood Pressure 129/79 114/84 Pulse Oximetry 98 98 Oxygen Delivery 10/06/24 20:00 10/06/24 20:00 10/07/24 00:00 Temperature Pulse Rate 107 H 100 Respiratory Rate Blood Pressure Pulse Oximetry Oxygen Delivery Room Air 10/07/24 04:00 10/07/24 04:26 10/07/24 08:00 Temperature 99.1 F Pulse Rate 101 H 104 H Respiratory Rate 16 Blood Pressure 105/75 Pulse Oximetry 98 98 Oxygen Delivery Room Air 10/07/24 08:00 Temperature Pulse Rate 108 H Respiratory Rate Blood Pressure Pulse Oximetry Oxygen Delivery Intake/Output Intake/Output: Intake & Output 10/04/24 10/05/24 10/06/24 10/07/24 23:59 23:59 23:59 23:59 Intake Total 0 1354 520 Balance 0 1354 520 Meds/Results Medications: Active Medications Generic Name Dose Route Start Last Admin Trade Name Freq PRN Reason Stop Dose Admin Baclofen 5 mg 10/07/24 14:00 Baclofen 5 Mg Tablet PO Q8HR AN Haloperidol Lactate 2 mg 10/05/24 16:43 Haloperidol Lactate 5 Mg/Ml Vial IV PUSH Q2H PRN Delirium Lorazepam 2 mg 10/05/24 16:43 Lorazepam Inj (*Crx) 2 Mg/Ml Vial IV PUSH Q4H PRN CIWA 8-15 Melatonin 3 mg 10/06/24 21:00 10/06/24 21:55 Melatonin 3 Mg Tablet PO 3 mg HS AN Administration Radiology Results: ITS Impressions Abdomen Ultrasound 10/05/24 15:56 IMPRESSION: 1. Enlarged and cirrhotic liver with diffuse hepatic steatosis. 2. Recanalized umbilical vein consistent with secondary portal venous hypertension. 3. Minimal perihepatic ascites. 4. Dilated gallbladder but with negative sonographic Chu's sign and without evident cholelithiasis suggest acute cholecystitis. If there is clinical concern could consider HIDA scan for further evaluation. Arterial/Peripheral Duplex 10/05/24 15:56 IMPRESSION: 1. Enlarged and cirrhotic liver with diffuse hepatic steatosis. 2. Recanalized umbilical vein consistent with secondary portal venous hypertension. 3. Minimal perihepatic ascites. 4. Dilated gallbladder but with negative sonographic Chu's sign and without evident cholelithiasis suggest acute cholecystitis. If there is clinical concern could consider HIDA scan for further evaluation. Scrotum Ultrasound 10/05/24 17:20 IMPRESSION: normal testicular ultrasound. MRCP 10/05/24 17:24 IMPRESSION: 1. Enlarged cirrhotic and fatty liver with regions of more focal fat along the gallbladder fossa which account for the masslike regions of concern on prior CT. 2. Prominent dilation the common bile duct but without evident wall thickening, pericholecystic stranding or gallstones to suggest acute cholecystitis. 3. Splenomegaly, gastroesophageal varices and recanalized umbilical vein consistent with portal venous hypertension secondary to cirrhosis. 4. Small amount of ascites scattered throughout the abdomen and pelvis. Labs Labs: Laboratory Results - last 24 hr 10/06/24 10/06/24 10/07/24 16:57 17:52 00:19 WBC RBC Hgb Hct MCV MCH MCHC RDW Plt Count MPV Immature Gran % (Auto) Neut % (Auto) Lymph % (Auto) [place] % (Auto) Eos % (Auto) Baso % (Auto) Lymph # (Auto) [place] # (Auto) Eos # (Auto) Baso # (Auto) Abs Immat Gran (auto) Absolute Neuts (auto) Absolute Nucleated RBC Nucleated RBC % % Immature Plt Fraction PT 17.0 H INR 1.4 Sodium Potassium Chloride Carbon Dioxide Anion Gap BUN Creatinine Estim Creat Clear Calc Estimated GFR Glucose POC Capillary Glucose 129 H 108 H Calcium Magnesium Total Bilirubin AST ALT Alkaline Phosphatase Total Protein Albumin 10/07/24 10/07/24 10/07/24 04:24 05:08 11:54 WBC 4.9 RBC 3.51 L Hgb 12.1 L Hct 35.0 L MCV 99.7 MCH 34.5 H MCHC 34.6 RDW 17.3 H Plt Count 64 L MPV 11.3 H Immature Gran % (Auto) 0.4 Neut % (Auto) 45.0 L Lymph % (Auto) 37.2 [place] % (Auto) 15.2 H Eos % (Auto) 1.6 Baso % (Auto) 0.6 Lymph # (Auto) 1.81 [place] # (Auto) 0.7 H Eos # (Auto) 0.1 Baso # (Auto) 0.0 Abs Immat Gran (auto) 0.02 Absolute Neuts (auto) 2.2 Absolute Nucleated RBC 0.000 Nucleated RBC % 0.0 % Immature Plt Fraction 7.5 PT INR Sodium 137 Potassium 3.7 Chloride 100 Carbon Dioxide 28 Anion Gap 9 BUN 5 L Creatinine 0.66 L Estim Creat Clear Calc 149 Estimated GFR > 60 Glucose 100 POC Capillary Glucose 92 109 H Calcium 8.0 L Magnesium 1.8 Total Bilirubin 4.5 H AST 412 H ALT 95 H Alkaline Phosphatase 170 H Total Protein 7.7 Albumin 3.2 L
[2024-10-07 13:46] LABS: Iron 85 ug/dL (49-181)
[2024-10-07 13:46] LABS: Cholesterol 105 mg/dL (0-200); HDL Direct 11 mg/dL; Triglycerides 96 mg/dL (<150)
[2024-10-07 13:59] LABS: LDL Cholesterol Direct 58 mg/dL; Transferrin 82 mg/dL (206-381)
[2024-10-07 14:03] LABS: Percent Iron Saturation 53 % (20-50)
[2024-10-07] MEDS: BACLOFEN 5 MG TABLET PO ×2 (14:24→22:45)
[2024-10-07 14:38] LABS: Hemoglobin A1C 4.6 % (<5.7)
[2024-10-07 15:07] LABS: Hepatitis B Surface Antigen Negative (Negative)
[2024-10-07 15:13] LABS: HAV RESULT Negative (Negative); Hepatitis B Core IgM Result Negative (Negative)
[2024-10-07 15:25] LABS: Hepatitis C Virus Antibody Negative (Negative)
[2024-10-07 18:00] LABS: Glucose Point of Care 98 mg/dl (65-105)
[2024-10-07 18:16] LABS: INR 1.5; Prothrombin Time 17.8 Seconds (11.1-14.7)
[2024-10-07] MEDS: MELATONIN 3 MG TABLET PO (22:46)
[2024-10-08] VITALS (9 sets, daily range): BP systolic 109–127; BP diastolic 67–78; PULSE 93–113; RESP 12–18; TEMP 37–37.1; O2SAT 98–100
[2024-10-08 06:31] LABS: Basophils Percent Auto 0.7 % (0.2-1.2); Eosinophils Absolute Auto 0.1 K/mm3 (0-0.3); Eosinophils Percent Auto 1.6 % (0-4.4); Hematocrit 35.4 % (42.0-52.0); Immature Granulocyte Absolute 0.01 K/mm3 (0.00-0.031); Immature Granulocyte Percent A 0.2 % (0-0.5); Immature Platelet Fraction Pct 8.7 % (0.9-11.2); Lymphocytes Absolute Auto 1.93 K/mm3 (0.9-3.2); Mean Corpuscular HGB Conc 33.9 g/dl (32-36); Mean Corpuscular Hemoglobin 34.1 pg (26-34); Mean Corpuscular Volume 100.6 fl (80-100); Mean Platelet Volume 11.6 fl (7.4-10.4); Monocytes Absolute Auto 0.8 K/mm3 (0.1-0.6); Monocytes Percent Auto 14.3 % (2.6-8.5); Neutrophils Absolute Auto 2.7 K/mm3 (1.3-6.7); Neutrophils Percent Auto 48.2 % (45.5-73.1); Platelet Count Result 70 k/mm3 (150-375); Red Blood Count 3.52 M/mm3 (4.6-6.20); Red Cell Distribution Width 17.7 % (11.5-14.5); White Blood Count 5.5 K/mm3 (4.5-10.0)
[2024-10-08] MEDS: BACLOFEN 5 MG TABLET PO ×3 (06:31→21:19)
[2024-10-08 06:40] LABS: Alanine Aminotransferase 88 U/L (6-50); Alkaline Phosphatase 170 U/L (38-126); Anion Gap 6 mmol/L (4-12); Aspartate Amino Transferase 357 U/L (17-59); Bilirubin,Total 4.8 mg/dL (0.2-1.3); Blood Urea Nitrogen 6 mg/dL (9-20); Carbon Dioxide 30 mmol/L (22-30); Chloride 100 mmol/L (98-107); Estimated CRCL calculation 153 ml/min; Estimated Glomerular Filt Rate > 60; Glucose 100 mg/dL (65-110); Magnesium 1.7 mg/dL (1.6-2.3); Potassium 3.6 mmol/L (3.4-5.0); Sodium 136 mmol/L (137-145); Total Protein 7.5 g/dL (6.3-8.2)
[2024-10-08 12:13] LABS: Glucose Point of Care 141 mg/dl (65-105)
--- NOTE | 2024-10-08 14:25 | P.PNGI_ITS ---
Progress Note: A&P Assessment and Plan (1) Alcoholic hepatitis: Code(s): K70.10 - Alcoholic hepatitis without ascites Status: Acute Assessment and Plan: stable, no indication for steroids he has been doing well, no signs of DT continue with nutrition support, thiamine he already has cirrhosis, he understook that needs to get help and stop drinking alcohol follow-up office in few weeks (will need routine visits because already has cirrhosis) (2) Elevated liver enzymes: Code(s): R74.8 - Abnormal levels of other serum enzymes Status: Acute Assessment and Plan: from etoh cirrhosis (3) Cirrhosis, alcoholic: Code(s): K70.30 - Alcoholic cirrhosis of liver without ascites Status: Acute Assessment and Plan: no dt's baclofen to help with craving Subjective Date/time seen: 10/08/24 14:25 Interval history: overall doing better no withdrawal signs and he is in good spirits eating bloating resolved he is feeling like going home Review of Systems Review of Systems: All systems reviewed & are unremarkable except as noted in HPI and below Exam Const: General: comfortable HENMT: Face/Nose/Sinus: Normal nares present Eyes: Other: mild icteric Neck: Neck: supple Resp: Effort & Inspection: normal respiratory effort Cardio: Rate: regular rate GI: GI Palp: Yes Soft to palpation and No Guarding due to palpation present (GI) Auscultation: normal bowel sounds Skin: Other: mild jaundice Neuro: Speech: normal speech Motor exam (neuro): 5/5 motor strength present throughout Extrem: General: normal to inspection Psych: Mental Status: mental status grossly normal Objective Data Vital Signs Vital Signs: Vital Signs - 24 hr 10/07/24 16:00 10/07/24 20:00 10/07/24 20:00 Temperature Pulse Rate 101 H 104 H Respiratory Rate Blood Pressure Pulse Oximetry Oxygen Delivery Room Air 10/07/24 21:25 10/08/24 00:00 10/08/24 04:00 Temperature 98.2 F Pulse Rate 101 H 102 H 97 Respiratory Rate 18 Blood Pressure 121/71 Pulse Oximetry 100 Oxygen Delivery 10/08/24 04:58 10/08/24 08:00 10/08/24 08:00 Temperature 98.6 F Pulse Rate 101 H 101 H 101 H Respiratory Rate 16 Blood Pressure 110/70 Pulse Oximetry 98 98 Oxygen Delivery Room Air Intake/Output Intake/Output: Intake & Output 06/11/25 06/12/25 06/13/25 06/14/25 23:59 23:59 23:59 23:59 Intake Total 0 1354 1000 850 Balance 0 1354 1000 850 Meds/Results Medications: Active Medications Generic Name Dose Route Start Last Admin Trade Name Freq PRN Reason Stop Dose Admin Baclofen 5 mg 10/07/24 14:00 10/08/24 13:11 Baclofen 5 Mg Tablet PO 5 mg Q8HR AN Administration Haloperidol Lactate 2 mg 10/05/24 16:43 Haloperidol Lactate 5 Mg/Ml Vial IV PUSH Q2H PRN Delirium Lorazepam 2 mg 10/05/24 16:43 Lorazepam Inj (*Crx) 2 Mg/Ml Vial IV PUSH Q4H PRN CIWA 8-15 Melatonin 3 mg 10/06/24 21:00 10/07/24 22:46 Melatonin 3 Mg Tablet PO 3 mg HS AN Administration Thiamine HCl 100 mg 10/09/24 09:00 Thiamine Hcl 100 Mg Tablet PO QAM [facility] Radiology Results: ITS Impressions Abdomen Ultrasound 10/05/24 15:56 IMPRESSION: 1. Enlarged and cirrhotic liver with diffuse hepatic steatosis. 2. Recanalized umbilical vein consistent with secondary portal venous hypertension. 3. Minimal perihepatic ascites. 4. Dilated gallbladder but with negative sonographic Chu's sign and without evident cholelithiasis suggest acute cholecystitis. If there is clinical concern could consider HIDA scan for further evaluation. Arterial/Peripheral Duplex 10/05/24 15:56 IMPRESSION: 1. Enlarged and cirrhotic liver with diffuse hepatic steatosis. 2. Recanalized umbilical vein consistent with secondary portal venous hypertension. 3. Minimal perihepatic ascites. 4. Dilated gallbladder but with negative sonographic Chu's sign and without evident cholelithiasis suggest acute cholecystitis. If there is clinical concern could consider HIDA scan for further evaluation. Scrotum Ultrasound 10/05/24 17:20 IMPRESSION: normal testicular ultrasound. MRCP 10/05/24 17:24 IMPRESSION: 1. Enlarged cirrhotic and fatty liver with regions of more focal fat along the gallbladder fossa which account for the masslike regions of concern on prior CT. 2. Prominent dilation the common bile duct but without evident wall thickening, pericholecystic stranding or gallstones to suggest acute cholecystitis. 3. Splenomegaly, gastroesophageal varices and recanalized umbilical vein consistent with portal venous hypertension secondary to cirrhosis. 4. Small amount of ascites scattered throughout the abdomen and pelvis. Labs Labs: Laboratory Results - last 24 hr 10/07/24 10/07/24 10/07/24 05:06 05:07 16:52 WBC RBC Hgb Hct MCV MCH MCHC RDW Plt Count MPV Immature Gran % (Auto) Neut % (Auto) Lymph % (Auto) [place] % (Auto) Eos % (Auto) Baso % (Auto) Lymph # (Auto) [place] # (Auto) Eos # (Auto) Baso # (Auto) Abs Immat Gran (auto) Absolute Neuts (auto) Absolute Nucleated RBC Nucleated RBC % % Immature Plt Fraction PT 17.8 H INR 1.5 Sodium Potassium Chloride Carbon Dioxide Anion Gap BUN Creatinine Estim Creat Clear Calc Estimated GFR Glucose POC Capillary Glucose Hemoglobin A1c 4.6 Calcium Magnesium Ferritin 1350.00 H Total Bilirubin AST ALT Alkaline Phosphatase Total Protein Albumin Hepatitis A IgM Ab Negative Hep Bs Antigen Negative Hep B Core IgM Ab Negative Hepatitis C Ab Screen Negative 10/07/24 10/08/24 10/08/24 17:42 05:48 12:10 WBC 5.5 RBC 3.52 L Hgb 12.0 L Hct 35.4 L MCV 100.6 H MCH 34.1 H MCHC 33.9 RDW 17.7 H Plt Count 70 L MPV 11.6 H Immature Gran % (Auto) 0.2 Neut % (Auto) 48.2 Lymph % (Auto) 35.0 [place] % (Auto) 14.3 H Eos % (Auto) 1.6 Baso % (Auto) 0.7 Lymph # (Auto) 1.93 [place] # (Auto) 0.8 H Eos # (Auto) 0.1 Baso # (Auto) 0.0 Abs Immat Gran (auto) 0.01 Absolute Neuts (auto) 2.7 Absolute Nucleated RBC 0.000 Nucleated RBC % 0.0 % Immature Plt Fraction 8.7 PT INR Sodium 136 L Potassium 3.6 Chloride 100 Carbon Dioxide 30 Anion Gap 6 BUN 6 L Creatinine 0.64 L Estim Creat Clear Calc 153 Estimated GFR > 60 Glucose 100 POC Capillary Glucose 98 141 H Hemoglobin A1c Calcium 8.0 L Magnesium 1.7 Ferritin Total Bilirubin 4.8 H AST 357 H ALT 88 H Alkaline Phosphatase 170 H Total Protein 7.5 Albumin 3.0 L Hepatitis A IgM Ab Hep Bs Antigen Hep B Core IgM Ab Hepatitis C Ab Screen
--- NOTE | 2024-10-08 15:07 | P.PNIM_ITS ---
Progress Note: A&P Assessment and Plan (1) Acute alcoholic hepatitis: Code(s): K70.10 - Alcoholic hepatitis without ascites Status: Inactive (2) Total bilirubin, elevated: Code(s): R17 - Unspecified jaundice Status: Inactive (3) Abdominal pain: Qualifiers: Abdominal location: generalized Qualified Code(s): R10.84 - Generalized abdominal pain Code(s): R10.9 - Unspecified abdominal pain Status: Acute (4) Ascites: Qualifiers: Ascites type: due to alcoholic cirrhosis Qualified Code(s): K70.31 - Alcoholic cirrhosis of liver with ascites Code(s): R18.8 - Other ascites Status: Inactive (5) Scrotal pain: Code(s): N50.82 - Scrotal pain Status: Acute Plan Patient is a 23-year-old male with generalized abdominal pain more so in the lower abdomen that radiates down to the groin region. He has an abdominal fullness pain and distension. He has a moderate alcohol drinker with whiskey daily. associated vomit and diarrhea. patient with history of alcohol abuse and energy drinks with abdominal pain, nausea and vomiting, the CT scan of abdomen is concerning for liver cirrhosis, patient nausea and vomiting has resolved, patient does c/o scrotal pain, has been full for sometime, scrotal ultrasound unremarkable.. patient stats from here he will not drink alcohol. Patent with history of alcohol and is found to have cirrhosis of liver, does not show any sign or symptoms of alcohol withdrawal, we have placed under CIWA protocol, and being monitor, patient father is present in the room and again patient is instructed abstain from alcohol to prevent further injury to the liver. patient stats he has difficulty sleeping will add melatonin at bed time and monitor. patient also complained of scrotal pain, testicle US is normal. Will check alpha-1 antitrypsin level check hepatitis and other markers for cirrhosis Need follow-up with GI regularly Subjective Date/time seen: 10/08/24 15:07 Interval history: No over night events. No new complaints. Labs reviewed. Review of Systems Review of Systems: All systems reviewed & are unremarkable except as noted in HPI and below Exam Narrative: Patient is comfortable, NAD HEENT: eyes are clear and none icteric LUNGS:CTA HEART: RR S1S2 ABD: BS+, Soft and nontender Lower extremities: no edema SKIN: nonjaundiced Neuro: grossly intact. Objective Data Vital Signs Vital Signs: Vital Signs - 24 hr 10/07/24 16:00 10/07/24 20:00 10/07/24 20:00 Temperature Pulse Rate 101 H 104 H Respiratory Rate Blood Pressure Pulse Oximetry Oxygen Delivery Room Air 10/07/24 21:25 10/08/24 00:00 10/08/24 04:00 Temperature 98.2 F Pulse Rate 101 H 102 H 97 Respiratory Rate 18 Blood Pressure 121/71 Pulse Oximetry 100 Oxygen Delivery 10/08/24 04:58 10/08/24 08:00 10/08/24 08:00 Temperature 98.6 F Pulse Rate 101 H 101 H 101 H Respiratory Rate 16 Blood Pressure 110/70 Pulse Oximetry 98 98 Oxygen Delivery Room Air 10/08/24 14:00 Temperature Pulse Rate 112 H Respiratory Rate 12 Blood Pressure 127/78 Pulse Oximetry 98 Oxygen Delivery Intake/Output Intake/Output: Intake & Output 10/05/24 10/06/24 10/07/24 10/08/24 23:59 23:59 23:59 23:59 Intake Total 0 1354 1000 850 Balance 0 1354 1000 850 Meds/Results Medications: Active Medications Generic Name Dose Route Start Last Admin Trade Name Freq PRN Reason Stop Dose Admin Baclofen 5 mg 10/07/24 14:00 10/08/24 13:11 Baclofen 5 Mg Tablet PO 5 mg Q8HR AN Administration Haloperidol Lactate 2 mg 10/05/24 16:43 Haloperidol Lactate 5 Mg/Ml Vial IV PUSH Q2H PRN Delirium Lorazepam 2 mg 10/05/24 16:43 Lorazepam Inj (*Crx) 2 Mg/Ml Vial IV PUSH Q4H PRN CIWA 8-15 Melatonin 3 mg 10/06/24 21:00 10/07/24 22:46 Melatonin 3 Mg Tablet PO 3 mg HS [facility] Administration Thiamine HCl 100 mg 10/09/24 09:00 Thiamine Hcl 100 Mg Tablet PO QAM [facility] Radiology Results: ITS Impressions Abdomen Ultrasound 10/05/24 15:56 IMPRESSION: 1. Enlarged and cirrhotic liver with diffuse hepatic steatosis. 2. Recanalized umbilical vein consistent with secondary portal venous hypertension. 3. Minimal perihepatic ascites. 4. Dilated gallbladder but with negative sonographic Chu's sign and without evident cholelithiasis suggest acute cholecystitis. If there is clinical concern could consider HIDA scan for further evaluation. Arterial/Peripheral Duplex 10/05/24 15:56 IMPRESSION: 1. Enlarged and cirrhotic liver with diffuse hepatic steatosis. 2. Recanalized umbilical vein consistent with secondary portal venous hypertension. 3. Minimal perihepatic ascites. 4. Dilated gallbladder but with negative sonographic Chu's sign and without evident cholelithiasis suggest acute cholecystitis. If there is clinical concern could consider HIDA scan for further evaluation. Scrotum Ultrasound 10/05/24 17:20 IMPRESSION: normal testicular ultrasound. MRCP 10/05/24 17:24 IMPRESSION: 1. Enlarged cirrhotic and fatty liver with regions of more focal fat along the gallbladder fossa which account for the masslike regions of concern on prior CT. 2. Prominent dilation the common bile duct but without evident wall thickening, pericholecystic stranding or gallstones to suggest acute cholecystitis. 3. Splenomegaly, gastroesophageal varices and recanalized umbilical vein consistent with portal venous hypertension secondary to cirrhosis. 4. Small amount of ascites scattered throughout the abdomen and pelvis. Labs Labs: Laboratory Results - last 24 hr 10/07/24 10/07/24 10/07/24 05:07 16:52 17:42 WBC RBC Hgb Hct MCV MCH MCHC RDW Plt Count MPV Immature Gran % (Auto) Neut % (Auto) Lymph % (Auto) [place] % (Auto) Eos % (Auto) Baso % (Auto) Lymph # (Auto) [place] # (Auto) Eos # (Auto) Baso # (Auto) Abs Immat Gran (auto) Absolute Neuts (auto) Absolute Nucleated RBC Nucleated RBC % % Immature Plt Fraction PT 17.8 H INR 1.5 Sodium Potassium Chloride Carbon Dioxide Anion Gap BUN Creatinine Estim Creat Clear Calc Estimated GFR Glucose POC Capillary Glucose 98 Calcium Magnesium Ferritin 1350.00 H Total Bilirubin AST ALT Alkaline Phosphatase Total Protein Albumin Hepatitis A IgM Ab Negative Hep Bs Antigen Negative Hep B Core IgM Ab Negative Hepatitis C Ab Screen Negative 10/08/24 10/08/24 05:48 12:10 WBC 5.5 RBC 3.52 L Hgb 12.0 L Hct 35.4 L MCV 100.6 H MCH 34.1 H MCHC 33.9 RDW 17.7 H Plt Count 70 L MPV 11.6 H Immature Gran % (Auto) 0.2 Neut % (Auto) 48.2 Lymph % (Auto) 35.0 [place] % (Auto) 14.3 H Eos % (Auto) 1.6 Baso % (Auto) 0.7 Lymph # (Auto) 1.93 [place] # (Auto) 0.8 H Eos # (Auto) 0.1 Baso # (Auto) 0.0 Abs Immat Gran (auto) 0.01 Absolute Neuts (auto) 2.7 Absolute Nucleated RBC 0.000 Nucleated RBC % 0.0 % Immature Plt Fraction 8.7 PT INR Sodium 136 L Potassium 3.6 Chloride 100 Carbon Dioxide 30 Anion Gap 6 BUN 6 L Creatinine 0.64 L Estim Creat Clear Calc 153 Estimated GFR > 60 Glucose 100 POC Capillary Glucose 141 H Calcium 8.0 L Magnesium 1.7 Ferritin Total Bilirubin 4.8 H AST 357 H ALT 88 H Alkaline Phosphatase 170 H Total Protein 7.5 Albumin 3.0 L Hepatitis A IgM Ab Hep Bs Antigen Hep B Core IgM Ab Hepatitis C Ab Screen
[2024-10-08 17:02] LABS: INR 1.6; Prothrombin Time 18.6 Seconds (11.1-14.7)
[2024-10-08 18:01] LABS: Glucose Point of Care 129 mg/dl (65-105)
[2024-10-08] MEDS: MELATONIN 3 MG TABLET PO (21:19)
[2024-10-09] VITALS: PULSE 104
[2024-10-09 00:22] LABS: Glucose Point of Care 111 mg/dl (65-105)
[2024-10-09 02:23] LABS: Ceruloplasmin 29 mg/dL (14-30)
[2024-10-09 04:00] VITALS: PULSE 92
[2024-10-09 05:34] LABS: Basophils Absolute Auto 0.1 K/mm3 (0.0-0.1); Basophils Percent Auto 0.9 % (0.2-1.2); Eosinophils Absolute Auto 0.1 K/mm3 (0-0.3); Eosinophils Percent Auto 1.4 % (0-4.4); Hematocrit 34.8 % (42.0-52.0); Immature Granulocyte Absolute 0.02 K/mm3 (0.00-0.031); Immature Granulocyte Percent A 0.4 % (0-0.5); Immature Platelet Fraction Pct 7.2 % (0.9-11.2); Lymphocytes Absolute Auto 2.07 K/mm3 (0.9-3.2); Lymphocytes Percent Auto 37.1 % (18.3-44.2); Mean Corpuscular HGB Conc 34.5 g/dl (32-36); Mean Corpuscular Hemoglobin 34.5 pg (26-34); Mean Platelet Volume 11.2 fl (7.4-10.4); Monocytes Absolute Auto 0.9 K/mm3 (0.1-0.6); Monocytes Percent Auto 16.1 % (2.6-8.5); Neutrophils Absolute Auto 2.5 K/mm3 (1.3-6.7); Neutrophils Percent Auto 44.1 % (45.5-73.1); Platelet Count Result 91 k/mm3 (150-375); Red Blood Count 3.48 M/mm3 (4.6-6.20); Red Cell Distribution Width 18.2 % (11.5-14.5); White Blood Count 5.6 K/mm3 (4.5-10.0)
[2024-10-09 05:49] LABS: Alanine Aminotransferase 84 U/L (6-50); Albumin Level 2.9 g/dL (3.5-5.1); Alkaline Phosphatase 157 U/L (38-126); Anion Gap 8 mmol/L (4-12); Aspartate Amino Transferase 329 U/L (17-59); Bilirubin,Total 5.2 mg/dL (0.2-1.3); Blood Urea Nitrogen 6 mg/dL (9-20); Calcium 8.1 mg/dL (8.4-10.2); Carbon Dioxide 28 mmol/L (22-30); Chloride 101 mmol/L (98-107); Estimated CRCL calculation 149 ml/min; Estimated Glomerular Filt Rate > 60; Glucose 104 mg/dL (65-110); Magnesium 1.6 mg/dL (1.6-2.3); Potassium 3.8 mmol/L (3.4-5.0); Sodium 137 mmol/L (137-145); Total Protein 7.6 g/dL (6.3-8.2)
[2024-10-09] MEDS: BACLOFEN 5 MG TABLET PO (05:58)
[2024-10-09 06:00] VITALS: BP 118/66; PULSE 100; RESP 18; TEMP 36.9; O2SAT 96
[2024-10-09 06:03] LABS: Platelet Estimate Decreased (Adequate); Schistocytes None Seen
[2024-10-09 06:04] LABS: Anisocytosis 1+
[2024-10-09 06:55] LABS: Large Platelets Present; Target Cells 1+
[2024-10-09] MEDS: THIAMINE HCL 100 MG TABLET PO (08:34)
--- NOTE | 2024-10-09 12:40 | PM.DS ---
DS: Admitting Diagnosis Discharge Date 10/09/2024 Admitting Diagnosis Abdominal pain DS: Discharge Diagnosis Discharge Diagnosis (1) Acute alcoholic hepatitis: Code(s): K70.10 - Alcoholic hepatitis without ascites Status: Inactive (2) Total bilirubin, elevated: Code(s): R17 - Unspecified jaundice Status: Inactive (3) Abdominal pain: Qualifiers: Abdominal location: generalized Qualified Code(s): R10.84 - Generalized abdominal pain Code(s): R10.9 - Unspecified abdominal pain Status: Acute (4) Ascites: Qualifiers: Ascites type: due to alcoholic cirrhosis Qualified Code(s): K70.31 - Alcoholic cirrhosis of liver with ascites Code(s): R18.8 - Other ascites Status: Inactive (5) Scrotal pain: Code(s): N50.82 - Scrotal pain Status: Acute DS: Summary Hospital Course Hospital Course: Patient is a 23-year-old male with generalized abdominal pain more so in the lower abdomen that radiates down to the groin region. He has an abdominal fullness pain and distension. He has a moderate alcohol drinker with whiskey daily. associated vomit and diarrhea. patient with history of alcohol abuse and energy drinks with abdominal pain, nausea and vomiting, the CT scan of abdomen is concerning for liver cirrhosis, patient nausea and vomiting has resolved, patient does c/o scrotal pain, has been full for sometime, scrotal ultrasound unremarkable.. patient stats from here he will not drink alcohol. Patent with history of alcohol and is found to have cirrhosis of liver, does not show any sign or symptoms of alcohol withdrawal, we have placed under [facility] protocol, and being monitor, patient father is present in the room and again patient is instructed abstain from alcohol to prevent further injury to the liver. patient stats he has difficulty sleeping will add melatonin at bed time and monitor. patient also complained of scrotal pain, testicle US is normal. Will check alpha-1 antitrypsin level hepatitis panel negative. Ceruloplasmin normal. Need follow-up with GI regularly Time Spent with Patient Time attestation: Total time spent providing and/or coordinating discharge services: 35 minutes Exam Narrative: Patient is comfortable, NAD HEENT: eyes are clear and none icteric LUNGS:CTA HEART: RR S1S2 ABD: BS+, Soft and nontender Lower extremities: no edema SKIN: nonjaundiced Neuro: grossly intact. DS: Data Data Completed and Pending Labs on day of discharge: Labs from last 24 hours 10/09/24 10/09/24 10/08/24 05:10 00:14 17:56 WBC 5.6 RBC 3.48 L Hgb 12.0 L Hct 34.8 L MCV 100.0 MCH 34.5 H MCHC 34.5 RDW 18.2 H Plt Count 91 L MPV 11.2 H Immature Gran % (Auto) 0.4 Neut % (Auto) 44.1 L Lymph % (Auto) 37.1 [place] % (Auto) 16.1 H Eos % (Auto) 1.4 Baso % (Auto) 0.9 Lymph # (Auto) 2.07 [place] # (Auto) 0.9 H Eos # (Auto) 0.1 Baso # (Auto) 0.1 Abs Immat Gran (auto) 0.02 Absolute Neuts (auto) 2.5 Absolute Nucleated RBC 0.000 Band Neutrophils % Not Reportable Nucleated RBC % 0.0 Platelet Estimate Decreased Large Platelets Present % Immature Plt Fraction 7.2 Anisocytosis 1+ Target Cells 1+ Schistocytes None seen PT INR Sodium 137 Potassium 3.8 Chloride 101 Carbon Dioxide 28 Anion Gap 8 BUN 6 L Creatinine 0.66 L Estim Creat Clear Calc 149 Estimated GFR > 60 Glucose 104 POC Capillary Glucose 111 H 129 H Calcium 8.1 L Magnesium 1.6 Total Bilirubin 5.2 H AST 329 H ALT 84 H Alkaline Phosphatase 157 H Total Protein 7.6 Albumin 2.9 L Ceruloplasmin 10/08/24 10/07/24 16:46 16:52 WBC RBC Hgb Hct MCV MCH MCHC RDW Plt Count MPV Immature Gran % (Auto) Neut % (Auto) Lymph % (Auto) [place] % (Auto) Eos % (Auto) Baso % (Auto) Lymph # (Auto) [place] # (Auto) Eos # (Auto) Baso # (Auto) Abs Immat Gran (auto) Absolute Neuts (auto) Absolute Nucleated RBC Band Neutrophils % Nucleated RBC % Platelet Estimate Large Platelets % Immature Plt Fraction Anisocytosis Target Cells Schistocytes PT 18.6 H INR 1.6 Sodium Potassium Chloride Carbon Dioxide Anion Gap BUN Creatinine Estim Creat Clear Calc Estimated GFR Glucose POC Capillary Glucose Calcium Magnesium Total Bilirubin AST ALT Alkaline Phosphatase Total Protein Albumin Ceruloplasmin 29 Imaging Radiologist's impression: ITS Impressions Abdomen Ultrasound 10/05/24 15:56 IMPRESSION: 1. Enlarged and cirrhotic liver with diffuse hepatic steatosis. 2. Recanalized umbilical vein consistent with secondary portal venous hypertension. 3. Minimal perihepatic ascites. 4. Dilated gallbladder but with negative sonographic Chu's sign and without evident cholelithiasis suggest acute cholecystitis. If there is clinical concern could consider HIDA scan for further evaluation. Arterial/Peripheral Duplex 10/05/24 15:56 IMPRESSION: 1. Enlarged and cirrhotic liver with diffuse hepatic steatosis. 2. Recanalized umbilical vein consistent with secondary portal venous hypertension. 3. Minimal perihepatic ascites. 4. Dilated gallbladder but with negative sonographic Chu's sign and without evident cholelithiasis suggest acute cholecystitis. If there is clinical concern could consider HIDA scan for further evaluation. Scrotum Ultrasound 10/05/24 17:20 IMPRESSION: normal testicular ultrasound. MRCP 10/05/24 17:24 IMPRESSION: 1. Enlarged cirrhotic and fatty liver with regions of more focal fat along the gallbladder fossa which account for the masslike regions of concern on prior CT. 2. Prominent dilation the common bile duct but without evident wall thickening, pericholecystic stranding or gallstones to suggest acute cholecystitis. 3. Splenomegaly, gastroesophageal varices and recanalized umbilical vein consistent with portal venous hypertension secondary to cirrhosis. 4. Small amount of ascites scattered throughout the abdomen and pelvis. Discharge Plan Discharge Attending physician on discharge: Dinesh Bravo Consulting providers: Jorge Ma Discharging Clinician: Dinesh Bravo Anticipated Discharge Date/Time: 10/09/24 12:42 Patient Disposition: Home Activity: as tolerated Diet: heart healthy and low sodium Patient Instructions: Antibiotic Form Patient Language: Gabonese Stand Alone Forms: General Discharge Information Follow-up/Referrals: Casey,MD Tylor [Primary Care Provider] - 1 Week Jorge Ma MD [Physician] - 2 Weeks Discharge Medications: New baclofen 10 mg Tablet 5 mg PO Q8HR Qty: 45 0RF thiamine HCl (vitamin B1) [Vitamin B-1] 100 mg Tablet 100 mg PO QAM Qty: 30 0RF No Action No Home Medications Other Ambulatory Orders: Complete Blood Count with Diff (Routine) Timeframe: 1 Week Location: Determined by Patient Ordered By: Dinesh Bravo Comprehensive Metabolic Panel (Routine) Timeframe: 1 Week Location: Determined by Patient Ordered By: Dinesh Bravo Date of admission: 10/05/24 08:50 Primary Care Provider: DevanTylor Admitting Provider: Franklyn Goodman Attending physician on admission: Franklyn Goodman Condition: Stable
--- NOTE | 2024-10-09 14:02 | P.PNGI_ITS ---
Progress Note: A&P Assessment and Plan (1) Alcoholic hepatitis: Code(s): K70.10 - Alcoholic hepatitis without ascites Status: Acute Assessment and Plan: stable, no indication for steroids he can go home, nutrition support, thiamine he already has cirrhosis, aware that needs to get help and stop drinking alcohol follow-up office in few weeks (will need routine visits because already has cirrhosis) he is going home today (2) Elevated liver enzymes: Code(s): R74.8 - Abnormal levels of other serum enzymes Status: Acute Assessment and Plan: from etoh cirrhosis (3) Cirrhosis, alcoholic: Code(s): K70.30 - Alcoholic cirrhosis of liver without ascites Status: Acute Assessment and Plan: no dt's baclofen to help with craving Subjective Date/time seen: 10/09/24 12:02 Interval history: doing better, he is ready to go home Review of Systems Review of Systems: All systems reviewed & are unremarkable except as noted in HPI and below Exam Const: General: comfortable HENMT: Face/Nose/Sinus: Normal nares present Eyes: Other: mild icteric Neck: Neck: supple Resp: Effort & Inspection: normal respiratory effort Cardio: Rate: regular rate GI: GI Palp: Yes Soft to palpation and No Guarding due to palpation present (GI) Auscultation: normal bowel sounds Skin: Other: mild jaundice Neuro: Speech: normal speech Motor exam (neuro): 5/5 motor strength present throughout Extrem: General: normal to inspection Psych: Mental Status: mental status grossly normal Objective Data Vital Signs Vital Signs: Vital Signs - 24 hr 10/08/24 16:00 10/08/24 20:00 10/08/24 20:00 Temperature Pulse Rate 104 H 96 Respiratory Rate Blood Pressure Pulse Oximetry Oxygen Delivery Room Air 10/08/24 22:00 10/09/24 00:00 10/09/24 04:00 Temperature 98.8 F Pulse Rate 93 104 H 92 Respiratory Rate 18 Blood Pressure 109/67 Pulse Oximetry 100 Oxygen Delivery 10/09/24 06:00 Temperature 98.4 F Pulse Rate 100 Respiratory Rate 18 Blood Pressure 118/66 Pulse Oximetry 96 Oxygen Delivery Intake/Output Intake/Output: Intake & Output 10/06/24 10/07/24 10/08/24 10/09/24 23:59 23:59 23:59 23:59 Intake Total 1354 1000 1540 600 Balance 1354 1000 1540 600 Meds/Results Radiology Results: ITS Impressions Abdomen Ultrasound 10/05/24 15:56 IMPRESSION: 1. Enlarged and cirrhotic liver with diffuse hepatic steatosis. 2. Recanalized umbilical vein consistent with secondary portal venous hypertension. 3. Minimal perihepatic ascites. 4. Dilated gallbladder but with negative sonographic Chu's sign and without evident cholelithiasis suggest acute cholecystitis. If there is clinical concern could consider HIDA scan for further evaluation. Arterial/Peripheral Duplex 10/05/24 15:56 IMPRESSION: 1. Enlarged and cirrhotic liver with diffuse hepatic steatosis. 2. Recanalized umbilical vein consistent with secondary portal venous hypertension. 3. Minimal perihepatic ascites. 4. Dilated gallbladder but with negative sonographic Chu's sign and without evident cholelithiasis suggest acute cholecystitis. If there is clinical concern could consider HIDA scan for further evaluation. Scrotum Ultrasound 10/05/24 17:20 IMPRESSION: normal testicular ultrasound. MRCP 10/05/24 17:24 IMPRESSION: 1. Enlarged cirrhotic and fatty liver with regions of more focal fat along the gallbladder fossa which account for the masslike regions of concern on prior CT. 2. Prominent dilation the common bile duct but without evident wall thickening, pericholecystic stranding or gallstones to suggest acute cholecystitis. 3. Splenomegaly, gastroesophageal varices and recanalized umbilical vein consistent with portal venous hypertension secondary to cirrhosis. 4. Small amount of ascites scattered throughout the abdomen and pelvis. Labs Labs: Laboratory Results - last 24 hr 10/07/24 10/08/24 10/08/24 16:52 16:46 17:56 WBC RBC Hgb Hct MCV MCH MCHC RDW Plt Count MPV Immature Gran % (Auto) Neut % (Auto) Lymph % (Auto) [place] % (Auto) Eos % (Auto) Baso % (Auto) Lymph # (Auto) [place] # (Auto) Eos # (Auto) Baso # (Auto) Abs Immat Gran (auto) Absolute Neuts (auto) Absolute Nucleated RBC Band Neutrophils % Nucleated RBC % Platelet Estimate Large Platelets % Immature Plt Fraction Anisocytosis Target Cells Schistocytes PT 18.6 H INR 1.6 Sodium Potassium Chloride Carbon Dioxide Anion Gap BUN Creatinine Estim Creat Clear Calc Estimated GFR Glucose POC Capillary Glucose 129 H Calcium Magnesium Total Bilirubin AST ALT Alkaline Phosphatase Total Protein Albumin Ceruloplasmin 29 10/09/24 10/09/24 00:14 05:10 WBC 5.6 RBC 3.48 L Hgb 12.0 L Hct 34.8 L MCV 100.0 MCH 34.5 H MCHC 34.5 RDW 18.2 H Plt Count 91 L MPV 11.2 H Immature Gran % (Auto) 0.4 Neut % (Auto) 44.1 L Lymph % (Auto) 37.1 [place] % (Auto) 16.1 H Eos % (Auto) 1.4 Baso % (Auto) 0.9 Lymph # (Auto) 2.07 [place] # (Auto) 0.9 H Eos # (Auto) 0.1 Baso # (Auto) 0.1 Abs Immat Gran (auto) 0.02 Absolute Neuts (auto) 2.5 Absolute Nucleated RBC 0.000 Band Neutrophils % Not Reportable Nucleated RBC % 0.0 Platelet Estimate Decreased Large Platelets Present % Immature Plt Fraction 7.2 Anisocytosis 1+ Target Cells 1+ Schistocytes None seen PT INR Sodium 137 Potassium 3.8 Chloride 101 Carbon Dioxide 28 Anion Gap 8 BUN 6 L Creatinine 0.66 L Estim Creat Clear Calc 149 Estimated GFR > 60 Glucose 104 POC Capillary Glucose 111 H Calcium 8.1 L Magnesium 1.6 Total Bilirubin 5.2 H AST 329 H ALT 84 H Alkaline Phosphatase 157 H Total Protein 7.6 Albumin 2.9 L Ceruloplasmin
--- OUTSIDE RECORDS SUMMARY | 2024-10-10 15:15 | XMS_ITS | Clinical Summary ---
Author Organization [facility] Address [facility] [place] [address] Care Team Providers Care Necktie Maker Name Role Phone Manasa Darby HELENE Primary Care Provider [phone] Allergies Active Allergy Reactions Criticality Noted Date Comments Amoxicillin Rash Low 02/07/2019 Cefdinir Rash Low 02/07/2019 Peanut-Containing Drug Products Swelling 12/27 Throat closes. Tobramycin Rash High 02/07/2019 Azithromycin Rash Low 02/07/2019 Medications famotidine 20 MG tabletIndications: Gastroesophageal reflux disease without esophagitis Take 1 tablet (20 mg total) by mouth 2 (two) times daily. 60 tablet 1 1 Active bismuth subsalicylate (PEPTO-BISMOL) 262 MG tabletIndications: pepto bismol started last night. Take 524 mg by mouth every 6 (six) hours as needed. Indications: pepto bismol started last night. Active ondansetron (ZOFRAN) 4 MG tabletIndications: Intractable vomiting with nausea, unspecified vomiting type Take 1 tablet (4 mg total) by mouth every 8 (eight) hours as needed for Nausea. 20 tablet 1 Active SERTRALINE 50 MG tabletIndications: Anxiety TAKE 1 TABLET BY MOUTH EVERY DAY 30 tablet 1 1 Active PANTOPRAZOLE EC 40 MG tabletIndications: Gastroesophageal reflux disease without esophagitis TAKE 1 TABLET BY MOUTH EVERY DAY 30 tablet 1 1 Active Active Problems Problem Noted Date Diagnosed Date Gastroesophageal reflux disease without esophagi tis 02/07/2019 Immunizations Immunization Administration Dates Next Due Dtap (Generic) 10/13/2006, 2,05/13/2001,02/25,01/18/2001 Hib (Generic) 05/09/2002, 2,03/09/2001,12/27 MENINGOCOCCAL A C Y&W-135 oligosaccharide (MENVEO) 02/07/2019 MMR (Generic) 10/13/2006,02/08/2002 Pneumococcal (Prevnar 13) 11/09/2002,10/2001,03/09/2001,12/27 Polio Ipv (Generic) 10/13/2006, 3,03/09/2001,12/27 Tdap (Generic) 12/16/2012 Social History Tobacco Use Types Packs/Day Years Used Date Smoking Tobacco: Never Smokeless Tobacco: Never Comments:vape pen -- uses oc casionally Alcohol Use Standard Drinks/Week Comments Yes 0 (1 standard drink = 0.6 oz pur e alcohol) twice weekly --weekends AUDIT-C Answer Date Recorded Frequency of Alcohol Consumption 2-4 times a thu02/07/2019 Average Number of Drinks Not on file 019 Frequency of Binge Drinking Weekly 01/25 PHQ-2 Answer Date Recorded PHQ-2 Score - If the patient scores above 3, please move on to questions 3-9 2 01/17/2021 Sex and Gender Information Value Date Recorded Sex Assigned at Not on file Legal Sex Male 10:34 AM CDT Gender Identity Not on file Sexual Orientation Not on file Last Filed Vital Signs Vital Sign Reading Time Taken Comments Blood Pressure 122/70 01/17/2021 12:45 PM CDT Pulse 82 01/17/2021 12:45 PM CDT Temperature 36.9 C (98.4 F) 01/17/2021 12:45 PM CDT Respiratory Rate 20 01/17/2021 12:45 PM CDT Oxygen Saturation 98% 01/17/2021 12:45 PM CDT Inhaled Oxygen Concentration - - Weight 74.8 kg (165 lb) 01/17/2021 12:45 PM CDT Height 175.3 cm (5' 9) 01/17/2021 12:45 PM CDT Body Mass Index 24.37 01/17/2021 12:45 PM CDT Plan of Treatment Health Maintenance Due Date Last Done Comments Annual Physical 11/08/2003 HPV Vaccines (1 - Male 3-dose series) 11/08/2015 Meningococcal B Vaccine (1 of 2 - Standard) 2016 Hepatitis C 2018 Hepatitis B Vaccines (1 of 3 - 19+ 3-dose series) 11/08/2019 DTaP, Tdap and Td Vaccines (7 - Td or Tdap) 12/16/2022 12/16/2012, 12/16/2012, 10/13/2006, Additional history exists COVID-19 Vaccine ( - 2023- season) 2023 Pneumococcal Vaccine: Pediatrics (0 to 5 Years) and At-Risk Patients (6 to 49 Years) Completed 11/09/2002, 05/03/2001, 03/09/2001, Additional history exists Meningococcal Vaccine Completed 02/07/2019 RSV Immunizations Under 20 Months Aged Out No longer eligible based on patient's age to complete this topic Care Teams Necktie Maker Relationship Specialty Start Date End Date Manasa Darby APNP [address] [place] [phone] PCP - General NURSE PRACTITIONER 02/07/19
== END 2024-10-09 13:24 | disposition home or self-care (01) ==
PROVIDERS: Internal Medicine Gastroenterology; Admitting Provider Family Medicine; PCP Internal Medicine; Visit Provider Internal Medicine
DX: K70.11 Alcoholic hepatitis with ascites (principal); K70.31 Alcoholic cirrhosis of liver with ascites; F10.10 Alcohol abuse, uncomplicated; R10.84 Generalized abdominal pain; N50.82 Scrotal pain
CPT/HCPCS: 36415; 74183; 76376; 76705; 76870; 80053; 80061; 80074; 82390; 82728; 82948; 83036; 83540; 83550; 83735; 84466; 85025; 85055; 85610; 86038; 86039; 93976; 96365; 96366; 96374; 96375; A9270; A9577; G0378; G0379; J3411; J3475; J7030